=== PATIENT | female | born 1975 | race Caucasian/White ===

== ENCOUNTER → 2019-12-27 12:01 | Outpatient (BNVA) | payer SELFPAY | PROVIDERS: Family Provider Family Medicine; Visit Provider Nurse Practitioner | DX: R10.84 Generalized abdominal pain (principal) | CPT/HCPCS: 80053; 81003; 85025 ==

== ENCOUNTER 2019-12-30 09:53 | Outpatient (CLI) | payer SELFPAY ==
--- NOTE | 2019-12-30 10:11 | CT_ITS ---
WS: [id number] CT ABDOMEN PELVIS TECHNIQUE: Noncontrast CT of the abdomen and pelvis with coronal and sagittal reformatted images. CLINICAL INFORMATION: Pain abdomen COMPARISON: CT May 22, 2017 DLP: 1172.[address] scans at [facility] use at least one of these dose optimization techniques: automat ed exposure control; mA and/or kV adjustment per patient size (includes targeted exams where dose is matched to clinical indication); or iterative reconstruction. FINDINGS: Prior postoperative changes hysterectomy. Noncontrast liver is normal. Normal gallbladder. Normal non contrast spleen and pancreas. Lung bases are well aerated. Normal GE junction. Adrenal glands are nor mal. Pelvic phleboliths. No obstructing renal or ureteral calculi. No evidence of small or large bowel obstruction. Normal sigmoid colon. Normal caliber abdominal aorta . Incidental fat-containing umbilical hernia. CT/CT abdomen pelvis wo con [id number] IMPRESSION: 1. No obstructing renal or ureteral calculi. 2. No abdominal lymphadenopathy. 3. Prior hysterectomy. 4. No evidence of small or large bowel obstruction.
[2019-12-30] MEDS: iohexol 300 mg/mL 50 mL Btl IV (11:48)
== END 2019-12-30 09:54 | disposition home or self-care (01) ==
LOC: RADWPI 10:01
PROVIDERS: Family Provider Family Medicine; PCP Nurse Practitioner; Visit Provider Nurse Practitioner
DX: R10.84 Generalized abdominal pain (principal)
CPT/HCPCS: 74176

== ENCOUNTER → 2021-08-10 12:05 | Outpatient (BNVA) | payer OTHER, SELFPAY | PROVIDERS: Family Provider Family Medicine; PCP Nurse Practitioner; Visit Provider Surgery | DX: Z20.822 Contact with and (suspected) exposure to COVID-19 (principal) | CPT/HCPCS: 87635 ==

== ENCOUNTER 2021-08-15 05:49 | Day surgery (SDC) | payer SELFPAY ==
[2021-08-14 11:04] VITALS: BMI 28.3
[2021-08-15] VITALS (15 sets, daily range): BP systolic 111–157; BP diastolic 67–100; PULSE 56–78; RESP 12–21; TEMP 36.1–36.6; O2SAT 96–100
[2021-08-15] MEDS: sodium chloride 0.9% 1,000 ML 30 ML IV (06:24)
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
--- NOTE | 2021-08-15 08:06 | PM.OP ---
Operative Report Date of procedure: August 15, 2021 Pre-op Diagnosis: Symptomatic incarcerated incisional hernia Post-op Diagnosis: Incarcerated incisional hernia containing omentum Procedure Done: Laparoscopic repair of incarcerated incisional hernia with Ventralight ST mesh measuring 20 x 15 cm. Pathology: none sent Surgeon: Chandu Whitaker Anesthesia: General Condition: stable Disposition: PACU Procedure: The patient was taken to the Operating Room and was intubated under general anesthesia after the antibiotic had been administered. The abdomen was prepped and draped in a sterile manner. Using a 15 blade, a 2-cm incision was made in the left upper quadrant in the anterior axillary line and pneumoperitoneum was created using Verres needle. A 10 mm Chandrakant port was placed and 15 mm of pneumoperitoneum was created after a 10 mm 30? scope had been introduced. 5 mm port was placed at the level of the umbilicus on the left side and in the left lower quadrant under direct visualization. Using an energy device the omentum adherent to the abdominal wall along the laparotomy incision was taken down and the omentum within the hernia sac was reduced. The falciform was divided to create space for placement of mesh A spinal needle was introduced through the abdominal wall and the edges of the hernial defect were marked and measured 10 x 7 cm. A 4-5 cm margin was marked on the abdominal wall on the outer edge of the hernial defect. 20 x [address] mesh was selected and 4 separate 2-0 Secondcreek-Shine sutures were placed at the 4 corners of the mesh. Grannie needle was passed through the stab incisions and used to grasp the free ends of the Secondcreek-Shine sutures which were then used to pull the mesh up against the abdominal wall creating transfascial sutures; 5 mm SecurStraps were placed 1 cm apart along the edge of the mesh to hold it against the abdominal wall. At the end of this, it was noted that the mesh was well positioned over the hernial defect. 20 cc of saline mixed with 20cc of Exparel mixed with 20cc of 0.5% Marcaine was infiltrated in the midclavicular line bilaterally under laparoscopic visualization for a TAP block. All ports were removed under direct visualization and there was no bleeding noted from the port sites. The external oblique aponeurosis was approximated at LUQ port site using figure of eight 0 Vicryl suture. The subcutaneous tissue was approximated using 3-0 Vicryl sutures. The skin at all 3 port sites was closed using subcuticular 4-0 Monocryl suture. The stab incisions and the port sites were covered with Dermabond. Abdominal binder was placed at the end of the procedure and the patient was extubated and transferred to recovery room in stable condition.
[2021-08-15] MEDS: fentaNYL 50 mcg/mL INJ 2mL IVP ×2 (08:21→08:26)
[2021-08-15] MEDS: HYDROmorphone 1 mg/mL INJ 1 mL 0.5 MG IVP (08:43)
[2021-08-15] MEDS: oxyCODONE-APAP 5-325 mg Tablet 1 TAB PO (09:10)
--- NOTE | 2021-08-15 13:20 | ANE.PACU2 ---
Inpatient post-anesthesia follow up: Airway intact: Yes Vital signs: Temperature 98 F Pulse Rate 66 Respiratory Rate 15 Blood Pressure 130/67 Pulse Oximetry 97 Oxygen Delivery Me thod Room Air Oxygen Flow Rate 8 Fraction of Inspir ed Oxygen Hydration adequate: Yes Nausea and vomiting: No Pain level: 2 Mental status: Baseline
== END 2021-08-15 09:45 | disposition home or self-care (01) ==
PROVIDERS: Visit Provider Surgery
PROC: 0WQF4ZZ Repair Abdominal Wall, Percutaneous Endoscopic Approach (ICD-10-PCS; CPT 49655; principal; 2021-08-15 07:00)
DX: K43.2 Incisional hernia without obstruction or gangrene (principal); K43.0 Incisional hernia with obstruction, without gangrene; Z87.891 Personal history of nicotine dependence
CPT/HCPCS: 49655; C1718; C9290; J0690; J1100; J1170; J2250; J2405; J2704; J2710; J3010; J3490; J7030

== ENCOUNTER 2023-04-30 09:36 | Outpatient (CLI) | payer OTHER, SELFPAY ==
--- NOTE | 2023-04-30 09:52 | XRR_ITS ---
PROCEDURE INFORMATION: Exam: XR Left Knee Exam date and time: 04/30/2023 9:56 AM Age: 47 years old Clinical indication: Pain; Knee; Left; Additional info: Left knee pain clicking and popping TECHNIQUE: Imaging protocol: Radiologic exam of the left knee. Views: 3 views. COMPARISON: No relevant prior studies available. FINDINGS: Bones/joints: The medial joint space is mildly narrowed with minimal osteophytic lipping.. The lateral joint space is well maintained. Mild patellofemoral osteophytic formation. No fracture identified. Flabella noted. Soft tissues: No knee joint effusion is present. XR/XR knee LT 3V* [id number] IMPRESSION: 1. No evidence of acute fracture or dislocation. 2. Mild medial and patellofemoral compartment osteoarthritic changes.
== END 2023-04-30 09:37 | disposition home or self-care (01) ==
PROVIDERS: PCP Clinical Nurse Specialist Adult Health; Visit Provider Clinical Nurse Specialist Adult Health
DX: Z00.00 Encounter for general adult medical examination without abnormal findings (principal); M17.12 Unilateral primary osteoarthritis, left knee; N95.1 Menopausal and female climacteric states
CPT/HCPCS: 73562; 80053; 80061; 82670; 84144; 84436; 84443; 84481; 85025

== ENCOUNTER 2023-05-30 07:41 | Outpatient (CLI) | payer OTHER, SELFPAY ==
--- NOTE | 2023-05-30 08:00 | MR_ITS ---
WS: [id number] MRI LEFT KNEE NONCONTRAST TECHNIQUE: Axial PD, coronal PD fat sat, coronal PD, sagittal PD, and sagittal PD fat-sat images obta ined. CLINICAL INFORMATION: left knee pain COMPARISON: None. FINDINGS: Distal quadriceps and patellar tendons are intact. Hypertrophic patella. Normal ACL and PCL. Moderate to advanced degenerative narrowing medial joint compartment advanced for patient this age. Subchondr al cystic change in the femoral condyle and tibial plateau. Peripheral extrusion of the medial menisc us. Hypertrophic changes along the joint line. Moderate chondromalacia patella. This is advanced for a patient this age. Tiny suprapatellar effusion . Normal lateral collateral ligament and popliteus. Fluid and edema deep to the medial collateral lig ament compatible with grade 1-2 injury. Chronic appearing thinning of the distal MCL with some normal fibers visualized likely due to prior chronic partial tear. Small lobulated popliteal cyst. Popliteal cyst measures approximately 1.6 x 3.3 cm. Small amount of f luid and edema about the joint line. Grade IV chondromalacia medial joint compartment. IMPRESSION: 1. ACL and PCL are intact. 2. Advanced joint space narrowing medial joint compartment with grade IV chondromalacia with subchon dral edema. This is advanced for patient this age. 3. Tear of the medial meniscus extending to the meniscal root with peripheral extrusion of the media l meniscus. 4. Grade III chondromalacia patella advanced for patient this age. 5. Small lobulated popliteal cyst. 6. Suspected prior partial tear of the distal MCL with fluid and edema deep to the MCL. 7. Outbridge grading: grade IV: full-thickness cartilage loss with underlying bone reactive changes
== END 2023-05-30 07:42 | disposition home or self-care (01) ==
PROVIDERS: PCP Clinical Nurse Specialist Adult Health; Visit Provider Clinical Nurse Specialist Adult Health
DX: M22.42 Chondromalacia patellae, left knee (principal); G89.29 Other chronic pain; S83.242A Other tear of medial meniscus, current injury, left knee, initial encounter; X58.XXXA Exposure to other specified factors, initial encounter; M71.22 Synovial cyst of popliteal space [Baker], left knee
CPT/HCPCS: 73721

== ENCOUNTER → 2023-06-17 11:57 | Outpatient (BNVA) | payer OTHER, SELFPAY | PROVIDERS: PCP Clinical Nurse Specialist Adult Health; Referring Provider Clinical Nurse Specialist Adult Health; Visit Provider Student in an Organized Health Care Education/Training Program | DX: M17.12 Unilateral primary osteoarthritis, left knee | CPT/HCPCS: 73560; 73565; 99203 ==

== ENCOUNTER → 2023-07-24 15:03 | Outpatient (BNVA) | payer OTHER, SELFPAY | PROVIDERS: PCP Clinical Nurse Specialist Adult Health; Visit Provider Student in an Organized Health Care Education/Training Program | DX: M17.12 Unilateral primary osteoarthritis, left knee (principal); Z01.818 Encounter for other preprocedural examination; M25.562 Pain in left knee; G89.29 Other chronic pain | CPT/HCPCS: 99214 ==

== ENCOUNTER 2023-08-09 14:06 | Outpatient (CLI) | payer OTHER, SELFPAY ==
[2023-08-09 14:59] LABS: Basophils % 0.4 %; Eosinophils # 0.2 10^3/uL (0.0-0.8); Hematocrit 45.3 % (36-47); Lymphocytes # 2.8 10^3/uL (0.8-4.8); Lymphocytes % 30.2 %; Mean Corpuscular HGB Conc 32.9 g/dL (30-55); Mean Corpuscular Hemoglobin 28.8 pg (27-33); Mean Corpuscular Volume 87.5 fl (85-98); Mean Platelet Volume 8.5 fL (7.4-10.4); Monocytes # 0.7 10^3/uL (0.2-0.9); Monocytes % 7.6 %; Neutrophils # 5.49 10^3/uL (1.8-7.7); Neutrophils % 59.5 %; Nucleated Red Blood Cells % 0 %; Platelet Count 417 10^3/cmm (157-399); Red Blood Count 5.18 10^6/uL (3.85-5.65); White Blood Count 9.23 10^3/uL (3.29-11.43)
[2023-08-09 15:16] LABS: Alanine Aminotransferase 17 U/L (0-33); Albumin Level 4.5 g/dL (3.5-5.2); Alkaline Phosphatase 110 U/L (35-105); Anion Gap 13.9 (5-19); Aspartate Amino Transferase 17 U/L (0-32); Blood Urea Nitrogen 14 mg/dL (6-20); Calcium 9.4 mg/dL (8.5-10.5); Carbon Dioxide 27 mmol/L (22-29); Chloride 102 mmol/L (98-107); Globulin 2.9 g/dL (1.3-4.6); Glomerular Filtration Rate 106.7 mL/min (90-130); Glucose 116 mg/dL (65-115); Osmolality Calculated 289 mOsm/kg (285-295); Potassium 3.9 mmol/L (3.5-5.1); Sodium 139 mmol/L (136-145); Total Bilirubin 0.6 mg/dL (0.15-1.2); Total Protein 7.4 g/dL (6.6-8.7)
[2023-08-09 15:17] LABS: Add Urine Microscopic? YES; Bilirubin Urine Neg (Negative); Blood Urine 2+ (Negative); Glucose Urine UA Norm (Normal); Ketones Urine Negative (Negative); Leukocyte Esterase Urine Trace (Negative); Nitrate Urine Negative (Negative); Protein Urine Neg (Negative); Urine Appearance Clear (CLEAR); Urine Color Yellow (Yellow); Urobilinogen Urine Norm (Negative); pH Urine 5 (5-7)
[2023-08-09 15:18] LABS: Bacteria Urine 1+ /hpf; RBC Urine 0-4 /hpf (0-2); Squamous Epithelial Cell Urine 15-25 /hpf (0-5)
[2023-08-09 15:19] LABS: Add Urine Culture? No
== END 2023-08-09 14:07 | disposition home or self-care (01) ==
LOC: LAB 14:07
PROVIDERS: PCP Clinical Nurse Specialist Adult Health; Visit Provider Student in an Organized Health Care Education/Training Program
DX: Z01.818 Encounter for other preprocedural examination (principal)
CPT/HCPCS: 36415; 80053; 81001; 85025

== ENCOUNTER 2023-08-14 07:47 | Outpatient (CLI) | payer OTHER, SELFPAY ==
--- NOTE | 2023-08-14 08:00 | CT_ITS ---
WS: [id number] CT LEFT KNEE, NONCONTRAST TECHNIQUE: Noncontrast CT of the LEFT knee to include the LEFT hip and ankle. CLINICAL INFORMATION: DJD LEFT KNEE COMPARISON: None. DLP: 985 mgy/cm all CT scans at [facility] use at least one of these dose optimization techniques: automated e xposure control; mA and/or kV adjustment per patient size (includes targeted exams where dose is matc hed to clinical indication); or iterative reconstruction. FINDINGS: Moderate to advanced tricompartmental arthritis LEFT knee worse in the medial joint compartment. Hype rtrophic changes along the joint line. Hypertrophic patella. Tiny suprapatellar effusion. Small lobul ated popliteal cyst. Normal sigmoid colon. IMPRESSION: Images obtained for preoperative purposes.
== END 2023-08-14 07:48 | disposition home or self-care (01) ==
LOC: RAD 07:47
PROVIDERS: PCP Clinical Nurse Specialist Adult Health; Visit Provider Student in an Organized Health Care Education/Training Program
DX: M17.12 Unilateral primary osteoarthritis, left knee (principal); M71.22 Synovial cyst of popliteal space [Baker], left knee
CPT/HCPCS: 73700

== ENCOUNTER 2023-08-17 07:48 | Emergency (ER) | payer OTHER, SELFPAY ==
[2023-08-17 08:07] VITALS: BP 147/108; PULSE 80; RESP 26; TEMP 36.6; O2SAT 99; BMI 28.3
--- NOTE | 2023-08-17 08:19 | CTR_ITS ---
PROCEDURE INFORMATION: Exam: CT Abdomen And Pelvis Without Contrast Exam date and time: 08/17/2023 8:37 AM Age: 48 years old Clinical indication: Abdominal pain; Flank; Left; Prior surgery; Surgery date: 6+ months; Surgery type: Hyster, colon; Additional info: Flank pain TECHNIQUE: Imaging protocol: Computed tomography of the abdomen and pelvis without contrast. Radiation optimization: All CT scans at this facility use at least one of these dose optimization techniques: automated exposure control; mA and/or kV adjustment per patient size (includes targeted exams where dose is matched to clinical indication); or iterative reconstruction. REPORTING DATA: Count of CT and Cardiac NM exams in prior 12 months: This patient has received [address] and 0 known cardiac nuclear medicine studies in the 12 months prior to the current study. COMPARISON: CT abdomen pelvis wo con [id number] 12/30/2019 11:27 AM RADIATION DOSE METRICS: Total DLP (mGy-cm): 729.74 FINDINGS: Liver: Normal. No mass. Gallbladder and bile ducts: Normal. No calcified stones. No ductal dilation. Pancreas: Normal. No ductal dilation. Spleen: Normal. No splenomegaly. Adrenal glands: Normal. No mass. Kidneys and ureters: There is a 2.5 mm distal left ureteral calculus just above the left UVJ. There is mild left hydronephrosis and hydroureter. Right kidney is unremarkable. Stomach and bowel: Unremarkable. No obstruction. No mucosal thickening. Appendix: No evidence of appendicitis. Intraperitoneal space: Unremarkable. No free air. No significant fluid collection. Vasculature: Unremarkable. No abdominal aortic aneurysm. Lymph nodes: Unremarkable. No enlarged lymph nodes. Urinary bladder: Unremarkable as visualized. Reproductive: Hysterectomy. Bones/joints: Unremarkable. No acute fracture. Soft tissues: Unremarkable. CT/CT kidney stone [id number] IMPRESSION: There is a 2.5 mm distal left ureteral calculus with mild left hydronephrosis and hydroureter.
[2023-08-17 08:26] LABS: Basophils % 0.4 %; Eosinophils # 0.1 10^3/uL (0.0-0.8); Eosinophils % 1.1 %; Hematocrit 46.2 % (36-47); Lymphocytes # 3.4 10^3/uL (0.8-4.8); Lymphocytes % 31.6 %; Mean Corpuscular HGB Conc 33.3 g/dL (30-55); Mean Corpuscular Hemoglobin 28.6 pg (27-33); Mean Corpuscular Volume 85.9 fl (85-98); Mean Platelet Volume 8.7 fL (7.4-10.4); Monocytes # 0.8 10^3/uL (0.2-0.9); Neutrophils # 6.42 10^3/uL (1.8-7.7); Neutrophils % 59.4 %; Nucleated Red Blood Cells % 0 %; Platelet Count 477 10^3/cmm (157-399); Red Blood Count 5.38 10^6/uL (3.85-5.65); White Blood Count 10.81 10^3/uL (3.29-11.43)
[2023-08-17] MEDS: ondansetron 2 mg/ML SDV 2 mL 4 MG IVP (08:26)
[2023-08-17] MEDS: sodium chloride 0.9% 1,000 ML 999 ML IV (08:26)
[2023-08-17] MEDS: ketorolac 30 mg/mL INJ IVP (08:26)
[2023-08-17] MEDS: morphine 4 mg/mL SDV 1 mL IVP (08:26)
[2023-08-17 08:38] LABS: Alanine Aminotransferase 12 U/L (0-33); Albumin Level 4.4 g/dL (3.5-5.2); Alkaline Phosphatase 110 U/L (35-105); Anion Gap 18.5 (5-19); Aspartate Amino Transferase 16 U/L (0-32); Blood Urea Nitrogen 14 mg/dL (6-20); Calcium 9.5 mg/dL (8.5-10.5); Carbon Dioxide 21 mmol/L (22-29); Chloride 103 mmol/L (98-107); Globulin 2.8 g/dL (1.3-4.6); Glomerular Filtration Rate 76.6 mL/min (90-130); Glucose 175 mg/dL (65-115); Lipase 36 U/L (13-60); Osmolality Calculated 293 mOsm/kg (285-295); Potassium 3.5 mmol/L (3.5-5.1); Sodium 139 mmol/L (136-145); Total Bilirubin 0.9 mg/dL (0.15-1.2); Total Protein 7.2 g/dL (6.6-8.7)
[2023-08-17 08:45] VITALS: BP 128/93; PULSE 74; RESP 16; O2SAT 95
[2023-08-17 08:45] LABS: HCG, Serum Qual Negative (Negative)
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
[2023-08-17 09:45] LABS: Add Urine Microscopic? YES; Bilirubin Urine 1+ (Negative); Blood Urine Neg (Negative); Glucose Urine UA Norm (Normal); Ketones Urine Negative (Negative); Leukocyte Esterase Urine Negative (Negative); Nitrate Urine Positive (Negative); Protein Urine 1+ (Negative); Urine Appearance Clear (CLEAR); Urine Color Dark Yellow (Yellow); Urobilinogen Urine 4 mg/dL (Negative); pH Urine 7 (5-7)
[2023-08-17 09:46] LABS: Add Urine Culture? Yes; Bacteria Urine TRACE /hpf; Mucus Urine TRACE /hpf; RBC Urine 15-25 /hpf (0-2); WBC Urine 0-4 /hpf (0-5)
[2023-08-17 10:15] VITALS: BP 137/89; PULSE 82; RESP 16; O2SAT 96
[2023-08-17 11:28] VITALS: BP 137/89; PULSE 75; RESP 16; O2SAT 95
--- NOTE | 2023-08-22 10:38 | DCPLANNER ---
I spoke with patient on 08/22/23 at 1039 am for her urology appointment to see where she would like this sent. Hallie does not want to proceed with this at this time. I advised I will not send a referral per patient request.
== END 2023-08-17 11:30 | disposition home or self-care (01) ==
PROVIDERS: Emergency Medicine; Emergency Provider Family Medicine; PCP Clinical Nurse Specialist Adult Health
DX: N13.2 Hydronephrosis with renal and ureteral calculous obstruction (principal); Z87.891 Personal history of nicotine dependence; Z87.442 Personal history of urinary calculi; E78.5 Hyperlipidemia, unspecified
CPT/HCPCS: 51701; 74176; 80053; 81001; 83690; 84703; 85025; 86140; 87086; 96361; 96374; 96375; 99285; J1885; J2270; J2405; J7030

== ENCOUNTER 2023-08-25 10:25 | Observation (INO) | payer OTHER, SELFPAY ==
[2023-08-25] VITALS (17 sets, daily range): BP systolic 90–142; BP diastolic 56–95; PULSE 55–88; RESP 16–20; TEMP 36.1–36.9; O2SAT 91–97
[2023-08-25] MEDS: acetaminophen 1,000 MG/100 ML PIGGYBACK 400 MG IV ×3 (06:19→21:55)
[2023-08-25] MEDS: lactated ringers 500 ML IV (06:21)
[2023-08-25] MEDS: ketorolac 30 mg/mL INJ IVP (06:23)
[2023-08-25] MEDS: sodium chloride 0.9% 1,000 ML 30 ML IV (06:45)
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
[2023-08-25] MEDS: midazolam 1 mg/mL INJ 2 mL 2 MG IVP (07:00)
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
--- NOTE | 2023-08-25 07:09 | ANES.PROC ---
Anesthesia Procedures Procedure/Date: 08/25/23 Nerve Block ^: Nerve Block 1: Main Anesthesia: spinal anesthesia block Time Out Performed: Yes Consent: requested by attending/covering physician, from patient, from other, risks and benefits reviewed and patient agrees to proceed Nerve block location: adductor canal (L) Anesthesia monitors applied: pulse oximetry, EKG and BP cuff Nerve block position: supine Anesthetic Used: ropivicaine 0.5% (30 ml) and with decadron (4 mg) Ultrasound used to: recognize landmarks and visualize and ID femerol nerve Nerve Stimulator Used?: No Interscalene/Femoral BLK: 4 stimuplex 21 g needle used for position and inplane approach, visualize local anesthetic spread and no vascular puncture identified Patient Tolerated Procedure: well and no complications Complications: none
[2023-08-25] MEDS: ceFAZolin 2,000 MG in sodium chloride 0.9% (plus) 50 ML 100 MG IV ×3 (07:13→22:23)
[2023-08-25] MEDS: tranexamic acid 1,000 mg/10mL SDV 1000 MG IV (07:45)
[2023-08-25 07:48] LABS: Basophils # 0.1 10^3/uL (0.0-0.1); Basophils % 0.6 %; Eosinophils # 0.4 10^3/uL (0.0-0.8); Hematocrit 43.7 % (36-47); Lymphocytes # 2.9 10^3/uL (0.8-4.8); Lymphocytes % 31.9 %; Mean Corpuscular HGB Conc 32.7 g/dL (30-55); Mean Corpuscular Hemoglobin 28.8 pg (27-33); Mean Corpuscular Volume 87.9 fl (85-98); Mean Platelet Volume 9.1 fL (7.4-10.4); Monocytes # 0.8 10^3/uL (0.2-0.9); Monocytes % 9.3 %; Neutrophils # 4.82 10^3/uL (1.8-7.7); Neutrophils % 53.8 %; Nucleated Red Blood Cells % 0 %; Platelet Count 439 10^3/cmm (157-399); Red Blood Count 4.97 10^6/uL (3.85-5.65); Red Cell Distribution Width 12.5 % (12.1-15.1); White Blood Count 8.96 10^3/uL (3.29-11.43)
[2023-08-25] MEDS: tranexamic acid 1,000 mg/10mL SDV 1000 MG XX (08:19)
[2023-08-25] MEDS: ketorolac 30 mg/mL INJ XX (08:20)
[2023-08-25] MEDS: EPINEPHrine 1 mg/mL INJ XX (08:20)
[2023-08-25] MEDS: ROPivacaine 0.2% Premix 100 mL 200 MG XX (08:20)
--- NOTE | 2023-08-25 09:50 | P.BOP_ITS ---
Date of Procedure: [08/25/2023] Surgeon: Brooks Wall DO Geospatial Information Technologist(s): None Procedure(s) performed: Left total knee arthroplasty, Froilan robotic assisted Findings of the procedure(s): Left knee degenerative joint disease, procedure went as planned with no complications Estimated blood loss: 25 mL Specimen(s) removed: Femur and tibia and patella bone clots removed Post-operative diagnosis: Left knee degenerative joint disease
--- NOTE | 2023-08-25 09:51 | P.OP_ITS ---
Operative Report Date of procedure: August 25, 2023 Surgeon: Brooks Wall DO Procedure: Preoperative diagnosis: Left knee degenerative joint disease Post-op diagnosis: Same Procedure done: Left total knee arthroplasty, cemented?robotic assisted Froilan Implants: [place] triathlon size 4 femur CR cemented?left Dino triathlon size? 4 tibia universal baseplate cemented Dino triathlon symmetric patella size 31 mm [place] triathlon polyethylene 12mm Surgeon: Brooks Wall DO Estimated blood?loss: 25 mL Tourniquet 60minutes IV fluids: 1200 mL Urine output: 500 mL Complications: None Condition: stable Disposition: floor Brief History: Patient is a 48-year-old female with with chronic?left knee degenerative joint disease.? Patient has been worked up in the outpatient setting in the orthopedic office at this point time through shared decision making given? [id number] arthritis as well as failed conservative treatment, and pt would?like to proceed with a?left total knee arthroplasty.? Through shared decision making elected to proceed with surgical intervention for?left total knee arthroplasty.? We talked about continued conservative treatment and surgical intervention as far as the risk benefits complications alternatives surgical and nonsurgical treatment options.? At this point time understanding patient risks with surgery he agrees to proceed with surgical intervention.? Once again? risk with surgery include but are not?limited to make it better make it worse blood clot, heart attack, stroke, on the table, infection, injury to nerves or vessels, persistent pain, arthrofibrosis, implant failure.? Understanding these risks patient agrees to proceed with surgical intervention consent was obtained in the office.? All questions answered. Procedure: Patient was seen and evaluated in the preoperative holding area.? Consent was reviewed and signed with patient with plan for?left total knee arthroplasty.? All questions answered.? Correct extremity marked.? Patient seen and evaluated by the anesthesia department and once cleared for surgery was taken back to the operative suite.? Patient was placed into a supine position on the OR table.? All bony prominences were well-padded.? Patient was appropriately secured to the bed.? Patient underwent anesthesia per the anesthesia department.? Patient received spinal anesthesia and? Christopher catheter was placed.? A nonsterile tourniquet was applied to the?left thigh.? At this point in time a final timeout performed.? Patient received appropriate preoperative antibiotics and TXA. Next the?left?lower extremity was then prepped and draped in standard orthopedic fashion. Esmarch tourniquet was used exsanguinate the?left?lower extremity.? Tourniquet was insufflated to 250 mmHg. A standard anterior incision was made over midline of the knee.? Sharp scalpel excision through skin and subcutaneous tissue full-thickness skin flaps were made.? Fascia was elevated off of the extensor retinaculum was stable with m edial parapatellar arthrotomy was then made.? The performed standard sequential releases..? Immediately on entry into the joint patient was found to have severe eburnated bone and tricompartmental arthritic changes noted.? With significant osteophyte formation.? Next the the patella was then stuffed and the knee was then flexed.?? Arnaldo was placed superiorly around the anterior aspect of the femur this was freed of synovium and I subsequently then placed by femur pins to establish my femur arrays for the Froilan robot.? These were then placed bicortically and? femur array was then appropriately secured with appropriate visualization.? Next attention was turned towards the tibial rays.? These were then drilled sequentially bicortically in parallel fashion and intraincisional.? I then placed my guide as well as my tibial array on in place.? This was appropriately secured and had excellent visualization with the Froilan robot.? Next the tibial checkpoint as well as femur checkpoint were then placed.? At this point time I then subsequently established my head center as well as my medial?lateral malleoli as well as my checkpoints.? Next utilizing standard Froilan technology I then mapped out the appropriate points and confirmation points around the femur as well as the tibia in standard fashion.? Once this was then done I then removed all osteophytes in preparation for dynamic testing.? All osteophytes were removed as well as I removed the ACL and the PCL was excised due to its significant tearing and degeneration noted.? At this point time the knee was brought into full extension and we performed our standard evaluation of our gap balancing stressing his?ligaments and extension as well as flexion appropriate adjustments were made to have appropriate gap balancing in both flexion and extension.? This plan for final counts.? We get a preoperative plan evaluating our implants which was a size 4 femur and a size 4 tibia.? Next we brought in the Froilan robot and sequentially made our femur cuts.? All excess bony cuts were then removed.? Finally we made our tibial cut.? Once this was done a standard PCL retractor was then placed into this position I excised the medial and?lateral meniscus.? The tibial cut was then subsequently removed all excess bony debris was removed.? I then utilized a?lamina plateman and remove the posterior osteophytes.? At this point time sized the tibia and confirmed this was a size 4.? I utilized our blunt probe to establish rotation of tibial implant.? Once this was done I then placed my tibia size 4 trial in appropriate position and then subsequently placed tibial pins to hold this into place placed a size 12 mm poly as well as a size 4 femur which was appropriately impacted in place knee was then subsequently brought into extension. Trials were then assessed,? this was stable with varus valgus stress in extension as well as had symmetrical translation when brought into flexion demonstrating symmetrical gaps. I had excellent balance gaps in flexion and extension with varus and valgus stresses.? At this point I was satisfied with these implants these were then verified and opened on the back table size 4 tibia, size4 femur,? size 12 mm polythickness.? We did confirm appropriate gap balancing and stresses as well as alignment utilizing? Amazing [employer] and were satisfied with this plan.? ?At this point time with my trials in place I then towel clip the patella everted this made appropriate measurements subsequently utilizing freehand technique performed by patellar resurfacing this was confirmed to be appropriate resection and subsequently sized to be a 31 mm symmetric.? My drill peg guides were then clamped and appropriate position and appropriate position in the patella for appropriate tracking and parallel with the joint.? Pegs were drilled trial implant was placed and the knee was then subsequently ranged and found to have excellent patellar tracking.? Femur pegs were then drilled.? Satisfied with our tibial placement rotation I then utilized the keel punch and prepped the tibia.? At this point time all of our trial implants were removed.? All checkpoints as well as guidepins and arrays were removed and appropriate counts made.? The wound bed? was thoroughly irrigated and dried and prepped for cementation.? Cement was mixed on the back table.? Once cement was ready this was then covered onto the tibia and the tibial baseplate was then impacted and all excess cement was removed.? Next the polyethylene was then impacted into place on the tibial baseplate.? Next cement was placed onto the femur as well as under the femur implants and impacted in to place and all excess cement was extruded and removed.? Knee was taken into full extension? to clear all excess cement was removed.? Warm saline was placed over the joint.? I then towel clip patella and dried for cementation. cemented the patella into place.? This was all clamped and the cement was allowed to cure.? Thorough irrigation performed with pulse?lavage.? I then placed my periarticular injection while the cement was curing.? Once cured the knee was taken through range of motion and had excellent stability and gaps were balanced in flexion and extension.? Tourniquet was then deflated. hemostasis satisfactory with electrocautery.? Next I then subsequently closed the capsule with Ethibond suture as well as a running strata fix suture.? Knee was then taken through range of motion 30 times.? Next the skin was then closed in?layered fashion of running stratifix sutures of deep and subcutenous tissue and skin.? ?closed in flexion and Prineo glue was then placed over the incision this allowed to cure.? Incision was covered with OpSite, with ABDs soft roll and Jamin wrap.? Patient was then awakened from anesthesia and taken to PACU in stable condition. Disposition: Patient taken to PACU in stable condition will be admitted to the floor for pain control PT/OT weight-bear as tolerated?left?lower extremity dressing changes as needed, DVT prophylaxis. Pain control. Patient will receive appropriate postoperative antibiotics. patient will be seen today by the internal medicine team for medical management.? Patient will follow up with the office in 2 weeks.? Patient understands agrees with current plan.? All questions answered.
--- NOTE | 2023-08-25 10:00 | XR_ITS ---
WS: [id number] Exam: XR knee LT 1-2V [id number] Date/Time of Exam: 08/25/2023 10:01 AM Reason For Exam: post L TKA Comparison 06/17/2023. A total knee prosthesis is in place in excellent position. Postoperative changes in the adjacent soft tissues. IMPRESSION: 1. LEFT total knee replacement in excellent position.
--- NOTE | 2023-08-25 10:25 | ANE.PACU2 ---
Inpatient post-anesthesia follow up: Airway intact: Yes Vital signs: Temperature 97.5 F Pulse Rate 84 Respiratory Rate 16 Blood Pressure 102/63 Pulse Oximetry 93 Oxygen Delivery Me thod Room Air Oxygen Flow Rate Fraction of Inspir ed Oxygen Hydration adequate: Yes Nausea and vomiting: No Pain level: 1 Mental status: Baseline
[2023-08-25] MEDS: lactated ringers 1,000 ML 100 ML IV ×2 (11:38→20:45)
[2023-08-25] MEDS: HYDROmorphone 1 mg/mL INJ 1 mL 0.5 MG IVP ×2 (12:18→23:17)
[2023-08-25] MEDS: chlorhexidine gluconate 0.12% Btl 473 mL 30 ML MUCOUS MEM ×3 (12:18→20:45)
[2023-08-25] MEDS: tranexamic acid 1,000 MG/100 ML PREMIX 600 MG IV (12:18)
--- NOTE | 2023-08-25 13:25 | PM.PACU ---
PACU note Narrative: Patient seen and examined postoperatively. Left lower extremity: patient has spinal anesthesia still in effect dressings on in place clean dry and intact. Unable to assess motor or sensory secondary to spinal anesthesia. Distal pulses palpable, toes warm well-perfused compartments soft compressible. Pain controlled. Will return to floor postoperatively. Exam: awake Disposition: admitted
[2023-08-25] MEDS: oxyCODONE 5 mg IR Tab/Cap PO ×2 (16:01→20:43)
[2023-08-25 16:52] LABS: Blood Urea Nitrogen 14 mg/dL (6-20); Calcium 9.1 mg/dL (8.5-10.5); Carbon Dioxide 23 mmol/L (22-29); Chloride 104 mmol/L (98-107); Glomerular Filtration Rate 106.7 mL/min (90-130); Glucose 107 mg/dL (65-115); Osmolality Calculated 291 mOsm/kg (285-295); Sodium 140 mmol/L (136-145)
[2023-08-25 17:10] LABS: Anion Gap 17.4 (5-19); Potassium 4.4 mmol/L (3.5-5.1)
[2023-08-25] MEDS: mupirocin oint 22 gm 1 APPLIC NASAL (17:39)
[2023-08-25] MEDS: docusate sodium 100 mg Capsule PO (17:39)
[2023-08-25] MEDS: iron polysaccharide complex 150 mg Capsule PO (17:39)
[2023-08-25] MEDS: calcium carb-vit d 600mg/400unit 1 Tablet 1 EACH PO (17:39)
[2023-08-25] MEDS: ketorolac 30 mg/mL INJ 15 MG IVP (22:22)
[2023-08-26] VITALS (7 sets, daily range): BP systolic 100–114; BP diastolic 53–71; PULSE 59–82; RESP 15–18; TEMP 36.6–36.8; O2SAT 91–96
[2023-08-26] MEDS: oxyCODONE 5 mg IR Tab/Cap PO ×2 (04:06→09:59)
[2023-08-26] MEDS: acetaminophen 1,000 MG/100 ML PIGGYBACK 400 MG IV (05:14)
[2023-08-26 05:33] LABS: Basophils % 0.2 %; Eosinophils % 0.3 %; Hematocrit 34.8 % (36-47); Lymphocytes # 2.5 10^3/uL (0.8-4.8); Lymphocytes % 16.6 %; Mean Corpuscular HGB Conc 32.8 g/dL (30-55); Mean Corpuscular Volume 88.5 fl (85-98); Mean Platelet Volume 8.8 fL (7.4-10.4); Monocytes # 1.7 10^3/uL (0.2-0.9); Monocytes % 10.8 %; Neutrophils # 10.91 10^3/uL (1.8-7.7); Neutrophils % 71.6 %; Nucleated Red Blood Cells % 0 %; Platelet Count 359 10^3/cmm (157-399); Red Blood Count 3.93 10^6/uL (3.85-5.65); Red Cell Distribution Width 12.4 % (12.1-15.1); White Blood Count 15.23 10^3/uL (3.29-11.43)
[2023-08-26 05:53] LABS: Anion Gap 14.9 (5-19); Blood Urea Nitrogen 13 mg/dL (6-20); Calcium 8.8 mg/dL (8.5-10.5); Carbon Dioxide 24 mmol/L (22-29); Chloride 103 mmol/L (98-107); Glomerular Filtration Rate 106.7 mL/min (90-130); Glucose 124 mg/dL (65-115); Osmolality Calculated 288 mOsm/kg (285-295); Potassium 3.9 mmol/L (3.5-5.1); Sodium 138 mmol/L (136-145)
[2023-08-26] MEDS: ceFAZolin 2,000 MG in sodium chloride 0.9% (plus) 50 ML 100 MG IV (06:05)
[2023-08-26] MEDS: TRAMadol 50 mg Tablet PO (06:06)
[2023-08-26] MEDS: lactated ringers 1,000 ML 100 ML IV (08:21)
[2023-08-26] MEDS: calcium carb-vit d 600mg/400unit 1 Tablet 1 EACH PO (08:21)
[2023-08-26] MEDS: multivitamin therapeutic Tablet 1 TAB PO (08:21)
[2023-08-26] MEDS: iron polysaccharide complex 150 mg Capsule PO (08:21)
[2023-08-26] MEDS: aspirin 325 mg EC Tablet PO ×2 (08:21→08:38)
[2023-08-26] MEDS: docusate sodium 100 mg Capsule PO (08:21)
--- NOTE | 2023-08-26 09:06 | PC.CHAP ---
Pastoral Care Encounter/Spiritual Assessment Type of Contact [] Declined torsion spring coiling machine setter visit [] Patient/Family/Request visit [] Outpatient visit [] Follow-up visit [] Physician referral [] Code/Alert [] Routine visit [] Staff referral [] Actively dying [] Patient sleeping [] Family support [] [] Out of room [] Palliative care [] [x] Receiving care in room [] Pre-surgical visit [] Trauma [] Long length of stay [] ICU visit [] Other: Relational/Emotional Strength [] Patient feels connected with others/family/visitors/staff [] Distress [] Loneliness/isolation [] Abandonment Spirituality of Patient [] Person of Nicky [] Attends Voodoo of their Nicky [] Believes in Prayer [] Reads Bible or Christian materials [] There are Spiritual issues to be addressed Java User Interface Developer Interventions [] Prayer [] Active listening [] Non-anxious presence [] Spiritual/emotional support [] Crisis/trauma care [] Spiritual counseling [] Bereavement support [] Provided bereavement packet [] Provided Bible/devotional materials [] Provided toy/stuffed animal, coloring book to patient or family member [] Provided Communion [] Anointing/[place] [] Salvation [] Completed spiritual assessment [] Other: Impact on Illness or Injury [] Angry [] Fearful [] Anxious [] Often cries [] Exhaustion [] Unable to work [] Unable to attend jainism [] Unable to walk/stand [] Unable to read [] Unable to drive [] Unable to eat/drink [] Unable to sleep [] Unable to be with family [] Patient intubated [] Other: Summary Time spent with patient
[2023-08-26] MEDS: chlorhexidine gluconate 0.12% Btl 473 mL 30 ML MUCOUS MEM (09:59)
[2023-08-26] MEDS: mupirocin oint 22 gm 1 APPLIC NASAL (10:00)
--- NOTE | 2023-08-26 12:14 | P.PN_ITS ---
Subjective 2 Subjective: Patient is a 48-year-old female that is 1 day postop left total knee arthroplasty. Denies any acute events overnight. She has worked with physical therapy today. Denies any other complaints. Vitals/I&O/Wt Last Vital Signs Temp 97.9 F 08/26/23 07:18 Pulse 79 08/26/23 11:54 Resp 16 08/26/23 11:54 BP 108/69 08/26/23 11:54 Pulse Ox 96 08/26/23 11:54 O2 Del Method Room Air 08/26/23 11:54 08/25/23 08/26/23 08/26/23 22:59 06:59 14:59 Intake Total 1541.667 / 3231.667 1150 / 4381.667 290 / 290 Output Total 1900 / 2425 250 / 2675 Balance -358.333 / 806.667 900 / 1706.667 290 / 290 Weight last 48 hrs Weight 189 lb 8 oz Weight 175 lb Weight 175 lb Physical Exam 2 Const: COMMON NORMALS: no acute distress and alert Resp: COMMON NORMALS: normal respiratory effort and No retractions Cardio: COMMON NORMALS: Peripheral pulses 2+ throughout PERIPHERAL PULSES: Peripheral pulses 2+ throughout Extremity: NARRATIVE EXTREMITY EXAM: Left leg?dressing is dry and intact. Patient has active range of motion in knee from 0 to 80 degrees. Pedal pulse 2+. Patient can straight leg raise, dorsiflex and plantarflex foot. Neuro: SENSORIUM/ORIENTATION: Yes alert Skin: GENERAL SKIN EXAM: dry skin Urinary Catheter Management: Christopher: Cath Placed During This Visit: yes, but has since been removed by the nurse Reason for Continuing Indwelling Catheter: Decision to DC Catheter Urinary Catheter Date of Insertion: 08/25/23 Urinary Catheter Time of Insertion: 07:45 Date Urinary Catheter Removed: 08/26/23 Time Urinary Catheter Discontinued: 06:10 Data 08/26/23 05:06 08/26/23 05:06 A&P Assessment and plan (1) Status post total left knee replacement using cement: Plan Plan: -Imaging and Labs reviewed -Hospitalist on board for medical management. -DVT prophylaxis- Aspirin 325mg BID for 14 days -Weight-bear as tolerated on right leg -Pain control -PT Pt is doing well 1 day postop Right total knee replacement. Pt is cleared for discharge home today. She will be sent home with a prescription for oxycodone, aspirin 325 mg twice daily and Zofran for nausea. She will be scheduled for 2- week postop appointment at Ortho clinic. Attestations 2 Medical Necessity Statement*: Ongoing care for left TKA Coding Level of Care Code Acute Code for Kimberlyg Fwd Diagnoses Status post total left knee replacement using cement Z96.652
--- NOTE | 2023-08-26 12:25 | P.DS_ITS ---
Discharge Providers Date of Admission: 08/25/23 10:25 Date of Discharge: August 26, 2023 Attending Provider at Admission: Brooks Wall DO Attending Provider at Discharge: Brooks Wall DO Primary Care Provider: Raymond Ellis Diagnoses at Discharge Discharge Diagnosis (1) Status post total left knee replacement using cement: Status: Acute Reason for Visit Reason for Visit: encounter for preprocedural examination Brief History: Status post left total knee arthroplasty Froilan robotic assisted Hospital Course Hospital Course Patient presented to the preoperative holding area with plan for left total knee arthroplasty after patient has been worked up in the outpatient setting for failed conservative treatment of left knee degenerative joint disease. Once cleared by anesthesia for surgery patient subsequently was taken back to the operative suite underwent anesthesia per anesthesia department and then subsequently underwent a left total knee arthroplasty. Procedure was performed without any complications patient was taken to PACU in stable condition patient recovered well in PACU and then was admitted to the floor postoperatively. Patient received appropriate PT/OT, postoperative antibiotics, postoperative TXA, pain control, postoperative DVT prophylaxis. Elevation and ice. Patient encouraged for knee range of motion allowed weightbearing as tolerated to the operative lower extremity. Dressing was changed as needed, labs were monitored daily. Patient recovered well postoperatively and worked well and progressed well with therapy. It was determined on postoperative day 1 the patient was stable for discharge from an orthopedic standpoint. Patient was comfortable with discharge and plan was discharged home. Patient received appropriate discharge instructions as well as pain medication and DVT prophylaxis postoperatively. Given appropriate instructions for dressing management. Patient will follow-up with Dr. Wall/orthopedics in the office in 2 weeks. All questions answered. Understand if there is any issues questions or concerns and contact the office. Physical Exam Const: COMMON NORMALS: no acute distress and alert Resp: COMMON NORMALS: normal respiratory effort and No retractions Cardio: COMMON NORMALS: Peripheral pulses 2+ throughout PERIPHERAL PULSES: Peripheral pulses 2+ throughout Extremity: NARRATIVE EXTREMITY EXAM: Left leg?dressing is dry and intact. Patient has active range of motion in knee from 0 to 80 degrees. Pedal pulse 2+. Patient can straight leg raise, dorsiflex and plantarflex foot. Neuro: SENSORIUM/ORIENTATION: Yes alert Skin: GENERAL SKIN EXAM: dry skin Urinary Catheter Management: Christopher: Cath Placed During This Visit: yes, but has since been removed by the nurse Reason for Continuing Indwelling Catheter: Decision to DC Catheter Urinary Catheter Date of Insertion: 08/25/23 Urinary Catheter Time of Insertion: 07:45 Date Urinary Catheter Removed: 08/26/23 Time Urinary Catheter Discontinued: 06:10 Discharge Data Studies Completed and Pending Completed Studies During Hospitalization Category Date Time Status XR knee LT 1-2V 66614 Routine Exams 08/25/23 10:00 Completed Pending at discharge Category Date Time Status Basic Metabolic Panel AM LABS Lab 08/27/23 04:00 Ordered Basic Metabolic Panel AM LABS Lab 08/28/23 04:00 Ordered Complete Blood Count w/Auto AM LABS Lab 08/27/23 04:00 Ordered Complete Blood Count w/Auto AM LABS Lab 08/28/23 04:00 Ordered Laboratory Results WBC 15.23 10^3/uL (3.29-11.43) H 08/26/23 05:06 RBC 3.93 10^6/uL (3.85-5.65) 08/26/23 05:06 Hgb 11.40 g/dL (11.27-16.99) 08/26/23 05:06 Hct 34.8 % (36-47) L 08/26/23 05:06 MCV 88.5 fl (85-98) 08/26/23 05:06 MCH 29.0 pg (27-33) 08/26/23 05:06 MCHC 32.8 g/dL (30-55) 08/26/23 05:06 RDW 12.4 % (12.1-15.1) 08/26/23 05:06 Plt Count 359 10^3/cmm (157-399) 08/26/23 05:06 MPV 8.8 fL (7.4-10.4) 08/26/23 05:06 Neut % (Auto) 71.6 % 08/26/23 05:06 Lymph % (Auto) 16.6 % 08/26/23 05:06 Carter % (Auto) 10.8 % 08/26/23 05:06 Eos % (Auto) 0.3 % 08/26/23 05:06 Baso % (Auto) 0.2 % 08/26/23 05:06 Neut # (Auto) 10.91 10^3/uL (1.8-7.7) H 08/26/23 05:06 Lymph # (Auto) 2.5 10^3/uL (0.8-4.8) 08/26/23 05:06 Carter # (Auto) 1.7 10^3/uL (0.2-0.9) H 08/26/23 05:06 Eos # (Auto) 0.0 10^3/uL (0.0-0.8) 08/26/23 05:06 Baso # (Auto) 0.0 10^3/uL (0.0-0.1) 08/26/23 05:06 Nucleated RBC % (auto) 0 % 08/26/23 05:06 Nucleated RBCs # 0.0 /100WBC 08/26/23 05:06 Sodium 138 mmol/L (136-145) 08/26/23 05:06 Potassium 3.9 mmol/L (3.5-5.1) 08/26/23 05:06 Chloride 103 mmol/L (98-107) 08/26/23 05:06 Carbon Dioxide 24 mmol/L (22-29) 08/26/23 05:06 Anion Gap 14.9 (5-19) 08/26/23 05:06 BUN 13 mg/dL (6-20) 08/26/23 05:06 Creatinine 0.6 mg/dL (0.5-0.9) 08/26/23 05:06 GFR Calculation 106.7 mL/min (90-130) 08/26/23 05:06 Glucose 124 mg/dL (65-115) H 08/26/23 05:06 Calculated Osmolality 288 mOsm/kg (285-295) 08/26/23 05:06 Calcium 8.8 mg/dL (8.5-10.5) 08/26/23 05:06 Blood Type B Positive 08/25/23 06:15 Rho(D) Type Rh positive 08/25/23 06:15 Antibody Screen Negative 08/25/23 06:15 Imaging Xray Ortho: Radiologist's impression: IMPRESSION: 1. LEFT total knee replacement in excellent position. Procedures Performed Left total knee arthroplasty Froilan robotic assisted Vitals Last Vital Signs Temp 97.9 F 08/26/23 07:18 Pulse 79 08/26/23 11:54 Resp 16 08/26/23 11:54 BP 108/69 08/26/23 11:54 Pulse Ox 96 08/26/23 11:54 O2 Del Method Room Air 08/26/23 11:54 Discharge Plan Discharge Patient Disposition: Home Condition: Stable Prescriptions: New ondansetron 4 mg tablet,disintegrating 4 mg PO Q8H PRN (Reason: nausea and vomiting) 3 Days Qty: 9 0RF aspirin 325 mg tablet 325 mg PO BID 14 Days Qty: 28 0RF oxycodone 5 mg tablet 5 mg PO Q6H PRN (Reason: pain postop) 7 Days Qty: 28 0RF Tylenol Extra Strength 500 mg tablet 500 mg PO Q4H 14 Days Qty: 84 0RF Continued atorvastatin 40 mg tablet 40 mg PO DAILY Qty: 90 0RF duloxetine 60 mg capsule,delayed release(DR/EC) 60 mg PO DAILY Qty: 30 3RF tamsulosin 0.4 mg capsule 0.4 mg PO DAILY Qty: 14 0RF Discontinued hydrocodone-acetaminophen 5-325 mg tablet 1 tab PO Q6H PRN (Reason: pain) Qty: 20 0RF promethazine 25 mg tablet 25 mg PO Q6H PRN (Reason: nausea and vomiting) Qty: 20 0RF Discharge Orders: Discharge Order (Routine); Ordered 08/26/23 Ordered By: Brooks Wall Other Ambulatory Orders: DME: Walker (Order) Location: None Selected Ordered By: Brooks Wall Physical Therapy Eval and Treat Outpatient (Order) Timeframe: 3 Days Facility: [facility] - Location: Physical Therapy Ordered By: Brooks Wall Referrals: Outpatient Physical Therapy at the [facility] [Other] (Someone will call you from Outpt PT to setup a date & time to follow up for therapy. If you have not heard from them in a few days, feel free & call .) Brooks Wall DO [Physician] - 09/16/23 9:00 am Discharge Diet: Advance as tolerated Discharge Activity: Limit activity as instructed Patient Instructions: Oxycodone/Acetaminophen (By mouth), Aspirin (By mouth), Ondansetron (By mouth), Total Knee Replacement (GEN), Joint Replacement Stoplight, Opioid Safety Activity Restrictions/Additional Instructions: Orthopedic discharge instructions: Keep incisions clean dry and intact, leave Silverlon bandage dressings on in place for 7 days after that may rinse incisions with warm soapy water pat dry and redress with a dry dressing. Patient may weight-bear as tolerate to the operative extremity Utilize crutches as needed Encourage knee range of motion Ice and elevate as needed for pain and swelling Take pain medication as prescribed Take antinausea medication as needed The prescribed Aspirin twice daily for the next 14 days for blood clot prevention May supplement for pain with ibuprofen [id number] as needed No baths or soaks Follow-up in the orthopedic office in 2 weeks Contact the office for any questions or concerns Discharge Attestations Time Spent in Discharge Care*: less than 30 min Quality Metrics Clinical Quality Measures [ No reported AMI, CVA or VTE this stay] Coding Level of Care Code Acute Code for Chg Fwd Diagnoses Status post total left knee replacement using cement Z96.652 Time Spent (min) 25
== END 2023-08-26 13:42 | disposition home or self-care (01) ==
LOC: MEDSURG 15:43
PROVIDERS: Admitting Provider Student in an Organized Health Care Education/Training Program; PCP Clinical Nurse Specialist Adult Health; Visit Provider Student in an Organized Health Care Education/Training Program
PROC: 8E0Y0CZ Robotic Assisted Procedure of Lower Extremity, Open Approach (ICD-10-PCS; CPT 27447; principal; 2023-08-25 07:00)
DX: M17.12 Unilateral primary osteoarthritis, left knee (principal); E78.5 Hyperlipidemia, unspecified; Z87.891 Personal history of nicotine dependence
CPT/HCPCS: 20985; 27447; 36415; 51702; 73560; 80048; 85025; 86850; 86900; 97110; 97116; 97161; 97165; C1776; G0378; J0131; J0171; J0690; J1100; J1170; J1885; J2250; J2371; J2704; J2795; J3010; J3490; J7030; J7120

== ENCOUNTER 2023-08-26 18:53 | Emergency (ER) | payer OTHER, SELFPAY ==
[2023-08-26 19:09] VITALS: BP 158/79; PULSE 91; RESP 17; TEMP 36.7; O2SAT 93; BMI 28.3
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
[2023-08-26] MEDS: ondansetron 2 mg/ML SDV 2 mL 4 MG IVP (19:28)
[2023-08-26] MEDS: HYDROmorphone 1 mg/mL INJ 1 mL IVP ×2 (19:28→19:48)
--- NOTE | 2023-08-26 19:46 | XRR_ITS ---
PROCEDURE INFORMATION: Exam: XR Left Knee Exam date and time: 08/26/2023 7:52 PM Age: 48 years old Clinical indication: Pain; Left; Prior surgery; Surgery date: Post-operative (0-2 days); Surgery type: Lt knee; Additional info: Injury TECHNIQUE: Imaging protocol: Radiologic exam of the left knee. Views: 3 views. COMPARISON: 1. CR XR knee LT 1-2V [id number] 08/25/2023 11:07 AM 2. CR XR knee LT 3V* [id number] 04/30/2023 9:56 AM FINDINGS: Bones/joints: Status post left total knee arthroplasty with intact hardware and stable adequate alignment. No acute fracture or dislocation. Soft tissues: Joint effusion and regional soft tissue swelling with soft tissue air lucencies are expected in the recent postoperative setting. XR/XR knee LT 3V* [id number] IMPRESSION: Recent left total knee arthroplasty without evidence of hardware complication or acute bony abnormality.
[2023-08-26 19:53] LABS: Basophils % 0.3 %; Eosinophils # 0.1 10^3/uL (0.0-0.8); Eosinophils % 0.9 %; Hematocrit 37.2 % (36-47); Lymphocytes # 3.9 10^3/uL (0.8-4.8); Lymphocytes % 29.3 %; Mean Corpuscular HGB Conc 33.1 g/dL (30-55); Mean Corpuscular Hemoglobin 28.4 pg (27-33); Mean Corpuscular Volume 85.9 fl (85-98); Mean Platelet Volume 8.7 fL (7.4-10.4); Monocytes # 1.5 10^3/uL (0.2-0.9); Monocytes % 11.2 %; Neutrophils # 7.74 10^3/uL (1.8-7.7); Neutrophils % 57.6 %; Nucleated Red Blood Cells % 0 %; Platelet Count 409 10^3/cmm (157-399); Red Blood Count 4.33 10^6/uL (3.85-5.65); Red Cell Distribution Width 12.4 % (12.1-15.1); White Blood Count 13.44 10^3/uL (3.29-11.43)
[2023-08-26 20:06] LABS: Anion Gap 17.7 (5-19); Blood Urea Nitrogen 12 mg/dL (6-20); Carbon Dioxide 20 mmol/L (22-29); Chloride 102 mmol/L (98-107); Glomerular Filtration Rate 131.7 mL/min (90-130); Glucose 125 mg/dL (65-115); Osmolality Calculated 283 mOsm/kg (285-295); Potassium 3.7 mmol/L (3.5-5.1); Sodium 136 mmol/L (136-145)
[2023-08-26] MEDS: LORazepam 1 mg Tablet PO (20:44)
[2023-08-26] MEDS: methocarbamol 750 mg Tablet 1500 MG PO (20:45)
== END 2023-08-26 21:05 | disposition home or self-care (01) ==
PROVIDERS: Emergency Provider Emergency Medicine; PCP Clinical Nurse Specialist Adult Health
DX: G89.18 Other acute postprocedural pain (principal); Z79.82 Long term (current) use of aspirin; Z87.891 Personal history of nicotine dependence; E78.5 Hyperlipidemia, unspecified
CPT/HCPCS: 73562; 80048; 85025; 96374; 96375; 96376; 99284; J1170; J2060; J2405

== ENCOUNTER 2023-08-28 08:44 | Outpatient (RCR) | payer OTHER, SELFPAY | END 2023-09-14 23:59 | disposition home or self-care (01) | LOC: SPT 08:44 | PROVIDERS: PCP Clinical Nurse Specialist Adult Health; Visit Provider Student in an Organized Health Care Education/Training Program | DX: M17.12 Unilateral primary osteoarthritis, left knee (principal) | CPT/HCPCS: 97110; 97140; 97161 ==

== ENCOUNTER 2023-08-28 12:38 | Emergency (ER) | payer OTHER, SELFPAY ==
[2023-08-28] VITALS (9 sets, daily range): BP systolic 91–136; BP diastolic 58–86; PULSE 84–127; RESP 16–20; TEMP 38.2; O2SAT 93–99; BMI 28.3
--- NOTE | 2023-08-28 14:03 | XR_ITS ---
WS: [id number] Left knee, 3 views, 08/28/2023 Clinical Data: post op pain Comparison: Left knee, 08/26/2023 Findings: The left knee arthroplasty remains in the same position. No periprosthetic loosening or fractures are seen. There is soft tissue swelling over the anterior knee. The air in the soft tissue from surgery is decreased. Impression: Stable left knee arthroplasty.
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
--- NOTE | 2023-08-28 14:07 | PC.NURSE ---
THIS RN ASSUMED CARE AT THIS TIME.
[2023-08-28 14:15] LABS: Basophils # 0.1 10^3/uL (0.0-0.1); Basophils % 0.4 %; Eosinophils # 0.1 10^3/uL (0.0-0.8); Hematocrit 36.3 % (36-47); Lymphocytes # 2.5 10^3/uL (0.8-4.8); Lymphocytes % 20.3 %; Mean Corpuscular HGB Conc 33.3 g/dL (30-55); Mean Corpuscular Hemoglobin 28.9 pg (27-33); Mean Corpuscular Volume 86.8 fl (85-98); Mean Platelet Volume 8.7 fL (7.4-10.4); Monocytes # 1.2 10^3/uL (0.2-0.9); Monocytes % 9.5 %; Neutrophils # 8.39 10^3/uL (1.8-7.7); Neutrophils % 68.3 %; Nucleated Red Blood Cells % 0 %; Platelet Count 410 10^3/cmm (157-399); Red Blood Count 4.18 10^6/uL (3.85-5.65); Red Cell Distribution Width 12.3 % (12.1-15.1); White Blood Count 12.29 10^3/uL (3.29-11.43)
--- NOTE | 2023-08-28 14:23 | USCV_ITS ---
Hallie Agosto Age: 48 Gender: F : 1975 Exam Date: 08/28/2023 15:15 Ordering Phys: Kennedy Perez DO Technologist: [place] Exam Location: [facility] – [place] Indication: LE Pain. Lt knee replacement HISTORY: Status post knee surgery. PROCEDURES: Venous duplex imaging was performed in only the left lower extremity. The following venous structures were evaluated: common femoral vein, profunda vein, proximal portion of the greater saphenous vein, superficial femoral vein, and the popliteal vein. In addition, the posterior tibial and peroneal trunk were evaluated. Serial compression, augmentation maneuvers, and spectral Doppler flow evaluation were performed. FINDINGS: No evidence of DVT seen in any vessel visualized at this time. CONCLUSIONS No evidence of left lower extremity DVT. Sharath Matthews MD (Electronically Signed) Final Date: 28 August 2023 17:44 S
[2023-08-28 14:30] LABS: Alanine Aminotransferase 33 U/L (0-33); Albumin Level 3.9 g/dL (3.5-5.2); Alkaline Phosphatase 87 U/L (35-105); Anion Gap 13.8 (5-19); Aspartate Amino Transferase 35 U/L (0-32); Blood Urea Nitrogen 14 mg/dL (6-20); Calcium 9.2 mg/dL (8.5-10.5); Carbon Dioxide 26 mmol/L (22-29); Chloride 98 mmol/L (98-107); Globulin 3.1 g/dL (1.3-4.6); Glomerular Filtration Rate 66.8 mL/min (90-130); Glucose 119 mg/dL (65-115); Osmolality Calculated 280 mOsm/kg (285-295); Potassium 3.8 mmol/L (3.5-5.1); Sodium 134 mmol/L (136-145)
[2023-08-28] MEDS: ondansetron 2 mg/ML SDV 2 mL 4 MG IVP (14:42)
[2023-08-28] MEDS: morphine 4 mg/mL SDV 1 mL IVP ×2 (14:45→16:20)
--- NOTE | 2023-08-28 15:30 | XR_ITS ---
WS: [id number] Exam: XR chest 1V portable [id number] Date/Time of Exam: 08/28/2023 3:47 PM Reason For Exam: dyspnea/cough No priors. Findings: The lungs are clear and fully expanded. Costophrenic angles are sharp. No infiltrates. Bronchovascula r relief appears normal. Cardiac silhouette is unremarkable. Bony elements are intact. IMPRESSION: Unremarkable chest radiograph.
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
[2023-08-28 17:20] LABS: Add Urine Microscopic? YES; Bilirubin Urine Neg (Negative); Blood Urine 2+ (Negative); Glucose Urine UA Norm (Normal); Ketones Urine Negative (Negative); Leukocyte Esterase Urine Negative (Negative); Nitrate Urine Negative (Negative); Protein Urine Neg (Negative); Specific Gravity, Urine 1.015 (1.005-1.030); Urine Appearance SL Hazy (CLEAR); Urine Color Yellow (Yellow); Urobilinogen Urine Norm (Negative); pH Urine 7 (5-7)
[2023-08-28 17:44] LABS: Amorphous Sediment Urine 1+ /hpf; Bacteria Urine TRACE /hpf; Mucus Urine 2+ /hpf; RBC Urine 0-4 /hpf (0-2); Squamous Epithelial Cell Urine 0-4 /hpf (0-5); WBC Urine 0-4 /hpf (0-5)
[2023-08-28 17:45] LABS: Add Urine Culture? No
== END 2023-08-28 18:08 | disposition home or self-care (01) ==
PROVIDERS: Emergency Provider Family Medicine; PCP Clinical Nurse Specialist Adult Health
DX: G89.18 Other acute postprocedural pain (principal); R50.9 Fever, unspecified; Z79.82 Long term (current) use of aspirin; Z87.891 Personal history of nicotine dependence; E78.5 Hyperlipidemia, unspecified
CPT/HCPCS: 71045; 73562; 80053; 81001; 85025; 93971; 96374; 96375; 96376; 99284; J2270; J2405

== ENCOUNTER 2023-09-15 06:00 | Outpatient (RCR) | payer OTHER, SELFPAY | END 2023-10-15 23:59 | disposition home or self-care (01) | LOC: SPT 06:00 | PROVIDERS: PCP Clinical Nurse Specialist Adult Health; Visit Provider Student in an Organized Health Care Education/Training Program | DX: M17.12 Unilateral primary osteoarthritis, left knee (principal) | CPT/HCPCS: 97110; 97112; 97116; 97140 ==

== ENCOUNTER → 2023-09-16 08:59 | Outpatient (BNVA) | payer OTHER, SELFPAY | PROVIDERS: PCP Clinical Nurse Specialist Adult Health; Visit Provider Student in an Organized Health Care Education/Training Program | DX: Z96.652 Presence of left artificial knee joint (principal) | CPT/HCPCS: 73560; 73565; 99024 ==

== ENCOUNTER 2023-10-16 06:00 | Outpatient (RCR) | payer OTHER, SELFPAY | END 2023-11-13 23:59 | disposition home or self-care (01) | LOC: SPT 06:00 | PROVIDERS: PCP Clinical Nurse Specialist Adult Health; Visit Provider Student in an Organized Health Care Education/Training Program | DX: M17.12 Unilateral primary osteoarthritis, left knee (principal) | CPT/HCPCS: 97110; 97112 ==

== ENCOUNTER → 2023-10-28 08:29 | Outpatient (BNVA) | payer OTHER, SELFPAY | PROVIDERS: PCP Clinical Nurse Specialist Adult Health; Visit Provider Student in an Organized Health Care Education/Training Program | DX: Z96.652 Presence of left artificial knee joint (principal) | CPT/HCPCS: 73560; 73565; 99024 ==

== ENCOUNTER 2023-11-14 06:00 | Outpatient (RCR) | payer OTHER, SELFPAY | END 2023-12-14 23:59 | disposition home or self-care (01) | LOC: SPT 06:00 | PROVIDERS: PCP Clinical Nurse Specialist Adult Health; Visit Provider Student in an Organized Health Care Education/Training Program | DX: M17.12 Unilateral primary osteoarthritis, left knee (principal) | CPT/HCPCS: 97110 ==

== ENCOUNTER → 2023-11-27 08:07 | Outpatient (BNVA) | payer OTHER, SELFPAY | PROVIDERS: PCP Clinical Nurse Specialist Adult Health; Visit Provider Physician Assistant | DX: Z96.652 Presence of left artificial knee joint (principal) | CPT/HCPCS: 73560; 73565; 99024 ==

== ENCOUNTER 2023-12-15 06:00 | Outpatient (RCR) | payer OTHER, SELFPAY | END 2024-01-06 23:59 | disposition home or self-care (01) | LOC: SPT 06:00 | PROVIDERS: PCP Clinical Nurse Specialist Adult Health; Visit Provider Student in an Organized Health Care Education/Training Program | DX: M17.12 Unilateral primary osteoarthritis, left knee (principal) | CPT/HCPCS: 97110 ==

== ENCOUNTER → 2024-02-26 10:44 | Outpatient (BNVA) | payer OTHER, SELFPAY | PROVIDERS: PCP Clinical Nurse Specialist Adult Health; Visit Provider Student in an Organized Health Care Education/Training Program | DX: Z96.652 Presence of left artificial knee joint (principal) | CPT/HCPCS: 73560; 73565 ==

== ENCOUNTER → 2025-03-30 08:09 | Outpatient (BNVA) | payer OTHER, SELFPAY | PROVIDERS: PCP Nurse Practitioner Family; Visit Provider Student in an Organized Health Care Education/Training Program | DX: M25.562 Pain in left knee (principal); M17.11 Unilateral primary osteoarthritis, right knee; Z96.652 Presence of left artificial knee joint | CPT/HCPCS: 73560; 73565 ==

== ENCOUNTER 2025-03-30 10:10 | Outpatient (CLI) | payer OTHER, SELFPAY | END 2025-03-30 10:11 | disposition home or self-care (01) | LOC: SPT 10:10 | PROVIDERS: PCP Nurse Practitioner Family; Visit Provider Student in an Organized Health Care Education/Training Program | DX: Z46.89 Encounter for fitting and adjustment of other specified devices (principal); M25.562 Pain in left knee | CPT/HCPCS: L1812 ==

== ENCOUNTER 2025-03-31 07:52 | Outpatient (CLI) | payer OTHER, SELFPAY ==
--- NOTE | 2025-03-31 07:58 | MM_ITS ---
WS: [id number] SCREENING DIGITAL TOMOSYNTHESIS MAMMOGRAM WITH CAD HISTORY: SCREENING COMPARISON: None available. Bilateral CC and MLO with tomosynthesis views submitted. Synthetic mammography reviewed. Computer aided detection analyzed. Breast composition: There are scattered areas of fibroglandular density. No suspicious masses, microcalcifications or architectural distortion. MM/MM scr BI tomosynthesis [id number] IMPRESSION: BI-RADS: 1 - Negative. FOLLOW UP: 1 Year Follow-up
== END 2025-03-31 07:53 | disposition home or self-care (01) ==
LOC: RAD 07:54
PROVIDERS: PCP Nurse Practitioner Family; Visit Provider Nurse Practitioner Family
DX: Z12.31 Encounter for screening mammogram for malignant neoplasm of breast (principal); R92.323 Mammographic fibroglandular density, bilateral breasts
CPT/HCPCS: 77063; 77067

== ENCOUNTER 2025-04-25 17:38 | Emergency (ER) | payer OTHER, SELFPAY ==
[2025-04-25 17:46] VITALS: BP 125/74; PULSE 84; RESP 16; TEMP 36.8; O2SAT 96; BMI 30.1
[2025-04-25 18:00] VITALS: BP 122/75; RESP 14; O2SAT 92
--- NOTE | 2025-04-25 18:02 | XRR_ITS ---
PROCEDURE INFORMATION: Exam: XR Left Shoulder Exam date and time: 04/25/2025 6:08 PM Age: 49 years old Clinical indication: Injury or trauma; Fall; Blunt trauma (contusions or hematomas); Shoulder; Left TECHNIQUE: Imaging protocol: Radiologic exam of the left shoulder. Views: 2 or more views. COMPARISON: CR XR chest 1V portable [id number] 08/28/2023 3:42 PM FINDINGS: Three views. Bones/joints: Mild degenerative change of the AC joint. Mild degenerative changes of the glenohumeral joint. Vasculature: Mild atheromatous vascular calcifications of the aorta. Lungs: Low lung volumes. Nonspecific although chronic appearing strands at the lung bases. Soft tissues: Normal. XR/XR shoulder LT min 2V* [id number] IMPRESSION: Mild degenerative change of the AC joint. Mild degenerative changes of the glenohumeral joint.
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
[2025-04-25 18:24] VITALS: BP 111/71; PULSE 77; O2SAT 93
== END 2025-04-25 18:34 | disposition home or self-care (01) ==
PROVIDERS: Emergency Provider Emergency Medicine; PCP Nurse Practitioner Family
DX: S49.92XA Unspecified injury of left shoulder and upper arm, initial encounter (principal); Z87.891 Personal history of nicotine dependence; E78.5 Hyperlipidemia, unspecified; W19.XXXA Unspecified fall, initial encounter
CPT/HCPCS: 73030; 99283

== ENCOUNTER → 2025-05-03 08:31 | Outpatient (BNVA) | payer OTHER, SELFPAY | PROVIDERS: PCP Nurse Practitioner Family; Visit Provider Podiatrist Foot & Ankle Surgery | DX: M21.611 Bunion of right foot (principal); M21.612 Bunion of left foot | CPT/HCPCS: 73630 ==

== ENCOUNTER 2025-05-13 10:17 | Outpatient (CLI) | payer OTHER, SELFPAY ==
--- NOTE | 2025-05-13 10:24 | MR_ITS ---
WS: [id number] MRI LEFT SHOULDER HISTORY: LEFT JOINT SHOULDER PAIN COMPARISON: Radiographs 04/25/2025 TECHNIQUE: Multiplanar sequences of the shoulder joint are submitted. Mild AC joint arthropathy. Small amount of fluid in the subacromial and subdeltoid bursa. Mild subacromial impingement. No os acromion. Biceps tendon remains positioned in the bicipital groove. There is a small amount of increased T2 signal in the biceps tendon just proximal to the bicipital groove. Large area of focal marrow edema involving the posterior lateral humeral head. Very mild narrowing of the glenohumeral joint. Increased T2 signal with thickening of the distal supraspinatus tendon. No tear is identified. No muscle atrophy or edema. Subscapularis tendon and the infraspinatus tendons are intact. No labral tear. MR/MR shoulder LT wo con* [id number] IMPRESSION: 1. Focal marrow edema in the posterolateral humeral head consistent with a rec ent posttraumatic contusion to the bone. 2. Small amount of fluid in the subacromial and subdeltoid bursa may be relate d to the recent trauma. 3. Moderate tendinopathy distal supraspinatus tendon but no tear. There may be a component of contusion to the supraspinatus tendon due to the thickening and the adjacent bone and soft tissue edema. 4. Mild subacromial impingement. 5. No labral tear.
== END 2025-05-13 10:18 | disposition home or self-care (01) ==
LOC: RAD 10:20
PROVIDERS: PCP Nurse Practitioner Family; Visit Provider Nurse Practitioner Family
DX: M67.814 Other specified disorders of tendon, left shoulder (principal); R60.0 Localized edema; M75.42 Impingement syndrome of left shoulder; M12.812 Other specific arthropathies, not elsewhere classified, left shoulder; R93.7 Abnormal findings on diagnostic imaging of other parts of musculoskeletal system
CPT/HCPCS: 73221

== ENCOUNTER → 2025-06-01 13:40 | Outpatient (BNVA) | payer OTHER, SELFPAY | PROVIDERS: PCP Nurse Practitioner Family; Visit Provider Student in an Organized Health Care Education/Training Program | DX: M25.512 Pain in left shoulder (principal); S49.92XA Unspecified injury of left shoulder and upper arm, initial encounter; M75.42 Impingement syndrome of left shoulder; W18.39XA Other fall on same level, initial encounter; Y99.0 Civilian activity done for income or pay | CPT/HCPCS: 73030 ==

== ENCOUNTER 2025-07-08 10:49 | Outpatient (CLI) | payer OTHER, SELFPAY ==
--- NOTE | 2025-07-08 11:06 | XR_ITS ---
WS: [id number] Right knee, 4 views, 07/08/2025 Clinical Data: M17.11 - Unilateral primary osteoarthritis, right knee Comparison: Left knee, AP both knees, 03/30/2025 Findings: No fractures or dislocations are seen. There is medial joint compartment narrowing with a small spur of the medial tibial plateau and medial femoral condyle. The right patella shows no irregularity. The soft tissues are unremarkable. XR/XR knee RT 3V* [id number] Impression: Medial joint compartment narrowing of the right knee.
[2025-07-08 11:45] LABS: Hematocrit 44.0 % (36-47); Hemoglobin 14.40 g/dL (11.27-16.99); Mean Corpuscular HGB Conc 32.7 g/dL (30-55); Mean Corpuscular Hemoglobin 28.1 pg (27-33); Mean Corpuscular Volume 85.8 fl (85-98); Nucleated Red Blood Cells % 0 %; Platelet Count 416 10^3/cmm (157-399); Red Blood Count 5.13 10^6/uL (3.85-5.65); White Blood Count 7.37 10^3/uL (3.29-11.43)
[2025-07-08 11:46] LABS: Glucose Urine UA Negative (Normal); Nitrate Urine Negative (Negative); Specific Gravity, Urine 1.024 (1.005-1.030)
[2025-07-08 11:51] LABS: Add Urine Microscopic? YES
[2025-07-08 12:06] LABS: Alanine Aminotransferase 23 U/L (0-33); Albumin Level 4.4 g/dL (3.5-5.2); Alkaline Phosphatase 80 U/L (35-105); Anion Gap 14.8 (5-19); Blood Urea Nitrogen 14 mg/dL (6-20); Calcium 8.9 mg/dL (8.5-10.5); Carbon Dioxide 26 mmol/L (22-29); Chloride 102 mmol/L (98-107); Globulin 2.6 g/dL (1.3-4.6); Glucose 100 mg/dL (65-115); Osmolality Calculated 289 mOsm/kg (285-295); Potassium 3.8 mmol/L (3.5-5.1); Sodium 139 mmol/L (136-145); Total Protein 7.0 g/dL (6.6-8.7)
[2025-07-08 12:10] LABS: UA Slide Review UA Slide Review Perf
[2025-07-08 12:13] LABS: Aspartate Amino Transferase 21 U/L (0-32)
== END 2025-07-08 10:50 | disposition home or self-care (01) ==
PROVIDERS: PCP Nurse Practitioner Family; Visit Provider Student in an Organized Health Care Education/Training Program
DX: Z01.818 Encounter for other preprocedural examination (principal); M25.861 Other specified joint disorders, right knee
CPT/HCPCS: 36415; 73562; 80053; 81001; 85025

== ENCOUNTER 2025-07-19 07:32 | Outpatient (CLI) | payer OTHER, SELFPAY ==
--- NOTE | 2025-07-19 07:30 | CT_ITS ---
WS: [id number] CT RIGHT KNEE, NONCONTRAST [facility] TECHNIQUE: Noncontrast CT of the RIGHT knee to include the RIGHT hip and ankle. CLINICAL INFORMATION: RIGHT TOTAL KNEE ARTHROPLASTY DLP: 965.[address] scans at [facility] use at least one of these dose optimization techniques: automated exposure control; mA and/or kV adjustment per patient size (includes targeted exams where dose is matched to clinical indication); or iterative reconstruction. FINDINGS: Advanced tricompartmental arthritis RIGHT knee. Small joint effusion. Hypertrophic changes along the joint line. Vascular calcification. Few sigmoid diverticuli. CT/CT knee RT DELONTE [id number] IMPRESSION: Images obtained for preoperative purposes.
== END 2025-07-19 07:33 | disposition home or self-care (01) ==
PROVIDERS: PCP Nurse Practitioner Family; Visit Provider Student in an Organized Health Care Education/Training Program
DX: M17.11 Unilateral primary osteoarthritis, right knee (principal); M25.461 Effusion, right knee
CPT/HCPCS: 73700

== ENCOUNTER → 2025-07-27 09:26 | Outpatient (BNVA) | payer OTHER, SELFPAY | PROVIDERS: PCP Nurse Practitioner Family; Visit Provider Registered Nurse Neonatal Intensive Care | DX: Z01.818 Encounter for other preprocedural examination (principal) | CPT/HCPCS: 81000 ==

== ENCOUNTER 2025-08-01 15:33 | Observation (INO) | payer OTHER, SELFPAY ==
[2025-08-01] VITALS (16 sets, daily range): BP systolic 107–139; BP diastolic 62–105; PULSE 52–99; RESP 16–20; TEMP 36.2–36.7; O2SAT 90–100; BMI 29.7; BMI 33.3
[2025-08-01] MEDS: acetaminophen 1,000 MG/100 ML PIGGYBACK 400 MG IV ×3 (12:01→23:14)
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
[2025-08-01 12:21] LABS: Hematocrit 44.2 % (36-47); Hemoglobin 14.50 g/dL (11.27-16.99); Mean Corpuscular HGB Conc 32.8 g/dL (30-55); Mean Corpuscular Hemoglobin 28.2 pg (27-33); Mean Corpuscular Volume 85.8 fl (85-98); Nucleated Red Blood Cells % 0 %; Platelet Count 419 10^3/cmm (157-399); Red Blood Count 5.15 10^6/uL (3.85-5.65); White Blood Count 7.89 10^3/uL (3.29-11.43)
[2025-08-01 12:47] LABS: Anion Gap 11.0 (5-19); Blood Urea Nitrogen 12 mg/dL (6-20); Calcium 8.5 mg/dL (8.5-10.5); Carbon Dioxide 26 mmol/L (22-29); Chloride 105 mmol/L (98-107); Glucose 158 mg/dL (65-115); Osmolality Calculated 289 mOsm/kg (285-295); Potassium 4.0 mmol/L (3.5-5.1); Sodium 138 mmol/L (136-145)
[2025-08-01] MEDS: ceFAZolin 2,000 MG in sodium chloride 0.9% (plus) 50 ML 100 MG IV ×2 (12:55→20:15)
[2025-08-01] MEDS: tranexamic acid 1,000 mg/10mL SDV 1000 MG IV (13:05)
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
[2025-08-01] MEDS: ROPivacaine 0.2% Premix 100 mL 200 MG INTRA-ARTI (13:45)
[2025-08-01] MEDS: tranexamic acid 1,000 mg/10mL SDV 1000 MG XX (13:45)
--- NOTE | 2025-08-01 14:38 | W.PM.BPON ---
Date of Procedure: 08/01/2025 Surgeon: Brooks Wall DO Water Treatment Plant Mechanic(s): Derek Wall PA-C Procedure(s) performed: Right total knee arthroplasty?Froilan robotic assisted Findings of the procedure(s): Underwent procedure as planned without issues or complications taken recovery in stable condition Estimated blood loss: 25 mL Specimen(s) removed: Tibia femur and patellar bone cuts removed Post-operative diagnosis: Right knee DJD
--- NOTE | 2025-08-01 14:41 | P.OP_ITS ---
Operative Report Date of procedure: August 01, 2025 Surgeon: Brooks Wall DO Minibus Driver: Derek Wall PA-C: PA was necessary for assistance in this case with leg positioning retraction and protection of neurovascular structures as well as assistance in implantation wound closure and dressing application. Procedure: Preoperative diagnosis: Right knee degenerative joint disease Post-op diagnosis: Same Procedure done: Right total knee arthroplasty, cemented?robotic assisted Froilan Implants: Dino triathlon size 4 femur CR cemented?Right [place] triathlon size? 4 tibia universal baseplate cemented Dino triathlon symmetric patella size 29 mm [place] triathlon polyethylene 11mm Surgeon: Brooks Wall DO Estimated blood?loss: 25 mL Tourniquet 58mins IV fluids: 1800 mL Urine output: 700 mL Complications: None Condition: stable Disposition: floor Brief History: Patient is a 50-year-old female with with chronic?Right knee degenerative joint disease.? Patient has been worked up in the outpatient setting in the orthopedic office at this point time through shared decision making given? [id number] arthritis as well as failed conservative treatment, and pt would?like to proceed with a?Right total knee arthroplasty.? Through shared decision making elected to proceed with surgical intervention for?Right total knee arthroplasty?Froilan robotic assisted.? We talked about continued conservative treatment and surgical intervention as far as the risk benefits complications alternatives surgical and nonsurgical treatment options.? At this point time understanding patient risks with surgery patient agrees to proceed with surgical intervention.? Once again? risk with surgery include but are not?limited to make it better make it worse blood clot, heart attack, stroke, on the table, infection, injury to nerves or vessels, persistent pain, arthrofibrosis, implant failure.? Understanding these risks patient agrees to proceed with surgical intervention c onsent was obtained in the preoperative holding area.? All questions answered. Procedure: Patient was seen and evaluated in the preoperative holding area.? Consent was reviewed and signed with patient with plan for?Right total knee arthroplasty.? All questions answered.? Correct extremity marked.? Patient seen and evaluated by the anesthesia department and once cleared for surgery was taken back to the operative suite.? Patient was placed into a supine position on the OR table.? All bony prominences were well-padded.? Patient was appropriately secured to the bed.? Patient underwent anesthesia per the anesthesia department.? Patient received spinal anesthesia and? Christopher catheter was placed.? A nonsterile tourniquet was applied to the?Right thigh.? At this point in time a final timeout performed.? Patient received appropriate preoperative antibiotics and TXA. Next the?Right?lower extremity was then prepped and draped in standard orthopedic fashion. Esmarch tourniquet was used exsanguinate the?Right?lower extremity.? Tourniquet was insufflated to 250 mmHg. A standard anterior incision was made over midline of the knee.? Sharp scalpel excision through skin and subcutaneous tissue full-thickness skin flaps were made.? Fascia was elevated off of the extensor retinaculum was stable with medial parapatellar arthrotomy was then made.? The performed standard sequential releases..? Immediately on entry into the joint patient was found to have severe eburnated bone and tricompartmental arthritic changes noted.? With significant osteophyte formation.? Next the the patella was then stuffed and the knee was then flexed.?? Arnaldo was placed superiorly around the anterior aspect of the femur this was freed of synovium and I subsequently then placed by 2 femur pins to establish my femur arrays for the Froilan robot.? These were then placed bicortically and? femur array was then appropriately secured with appropriate visualization.? Next attention was turned towards the tibial rays.? These were then drilled sequentially bicortically in parallel fashion and intraincisional.? I then placed my guide as well as my tibial array on in place.? This was appropriately secured and had excellent visualization with the Froilan robot.? Next the tibial checkpoint as well as femur checkpoint were then placed.? At this point time I then subsequently established my head center as well as my medial?lateral malleoli as well as my checkpoints.? Next utilizing standard Froilan technology I then mapped out the appropriate points and confirmation points around the femur as well as the tibia in standard fashion.? Once this was then done I then removed all osteophytes in preparation for dynamic testing.? All osteophytes were removed as well as I removed the ACL and the PCL was excised due to its significant tearing and degeneration noted.? At this point time the knee was brought into full extension and we performed our standard evaluation of our gap balancing stressing his?ligaments and extension as well as flexion appropriate adjustments were made to have appropriate gap balancing in both flexion and extension.? This plan for final cuts were made to correct patient's varus deformity within ligamentous tolerances. We get a preoperative plan evaluating our implants which was a size 4 femur and a size 4 tibia.? Next we brought in the Froilan robot and sequentially made our femur cuts.? All excess bony cuts were then removed.? Finally we made our tibial cut.? Once this was done a standard PCL retractor was then placed into this position I excised the medial and?lateral meniscus.? The tibial cut was then subsequently removed all excess bony debris was removed.? I then utilized a?lamina hair spring winder and remove the posterior osteophytes.? At this point time sized the tibia and confirmed this was a size 4.? I utilized our blunt probe to establish rotation of tibial implant.? Once this was done I then placed my tibia size 4 trial in appropriate position and then subsequently placed tibial pins to hold this into place and trialed up to size 11 mm poly as well as a size 4 femur which was appropriately impacted in place knee was then subsequently brought into extension. Trials were then assessed,? this was stable with varus valgus stress in extension as well as had symmetrical translation when brought into flexion demonstrating symmetrical gaps. I had excellent balance gaps in flexion and extension with varus and valgus stresses.? Patient full knee range of motion able to achieve full extension as well as flexion to greater than 120 degrees. At this point I was satisfied with these implants these were then verified and opened on the back table size 4 tibia, size4 femur,? size 11 mm polythickness.? We did confirm appropriate gap balancing and stresses as well as alignment utilizing? Froilan and were satisfied with this plan.? ?At this point time with my trials in place I then towel clip the patella everted this made appropriate measurements subsequently utilizing freehand technique performed by patellar resurfacing this was confirmed to be appropriate resection and subsequently sized to be a 29 mm symmetric.? My drill peg guides were then clamped and appropriate position and appropriate position in the patella for appropriate tracking and parallel with the joint.? Pegs were drilled trial implant was placed and the knee was then subsequently ranged and found to have excellent patellar tracking.? Femur pegs were then drilled.?At this point time all of our trial implants were removed.? All checkpoints as well as guidepins and arrays were removed and appropriate counts made. Satisfied with our tibial placement rotation I then utilized the keel punch and prepped the tibia.? The wound bed? was thoroughly irrigated and dried and prepped for cementation.? Cement was mixed on the back table.? Once cement was ready this was then covered onto the tibia and the tibial baseplate was then impacted and all excess cement was removed.? Next the polyethylene was then impacted into place on the tibial baseplate.? Next cement was placed onto the femur as well as under the femur implants and impacted in to place and all excess cement was extruded and removed.? Knee was taken into full extension? to clear all excess cement was removed.? Warm saline was placed over the joint.? I then towel clip patella and dried for cementation. cemented the patella into place.? This was all clamped and the cement was allowed to cure.? Thorough irrigation performed with pulse?lavage.? I then placed my periarticular injection while the cement was curing.? Once cured the knee was taken through range of motion and had excellent stability and gaps were balanced in flexion and extension.? Tourniquet was then deflated. hemostasis satisfactory with electrocautery.? Next I then subsequently closed the capsule with Ethibond suture as well as a running strata fix suture.? Knee was then taken through range of motion 30 times.? Next the skin was then closed in?layered fashion of running stratifix sutures of deep and subcutenous tissue and skin.? ?closed in flexion and Prineo glue was then placed over the incision this allowed to cure.? Incision was covered with Silverlon, with ABDs soft roll and Jamin wrap.? Patient was then awakened from anesthesia and taken to PACU in stable condition. Disposition: Patient taken to PACU in stable condition will be admitted to the [facility] for pain control PT/OT weight-bear as tolerated?Right?lower extremity dressing changes as needed, DVT prophylaxis. Pain control. Patient will receive appropriate postoperative antibiotics. patient will be seen today by the internal medicine team for medical management.? Patient will follow up with the office in 2 weeks.? Patient understands agrees with current plan.? All questions answered.
--- NOTE | 2025-08-01 14:49 | XRR_ITS ---
PROCEDURE INFORMATION: Exam: XR Right Knee Exam date and time: 08/01/2025 2:58 PM Age: 50 years old Clinical indication: Device placement; Joint replacement hardware; Prior surgery; Surgery date: Post-operative (0-2 days); Surgery type: R tka; Additional info: S/P R tka TECHNIQUE: Imaging protocol: Radiologic exam of the right knee. Views: 1 or 2 views. COMPARISON: CT knee RT [facility] [id number] 07/19/2025 8:14 AM FINDINGS: Bones/joints: Postsurgical changes from right knee arthroplasty. Hardware is intact without malalignment or periprosthetic fracture. Expected postsurgical air in the joint and soft tissues seen. XR/XR knee RT 1-2V [id number] IMPRESSION: Expected postsurgical changes without radiographic complications.
--- NOTE | 2025-08-01 15:04 | PM.PACU ---
PACU note Narrative: Patient is a 50-year-old female who just underwent a right total knee arthroplasty. Pt transferred to PACU in stable condition. Dressing is dry. pt is awake and alert. pt can wiggle toes and plantarflex and dorsiflex foot. pt able to perform straight leg raise, Femoral nerve intact. Distal pulses are palpable toes are warm and well-perfused. Cap refill is normal and under 2 seconds. Sensation to foot is intact. Pain is controlled. Exam: awake Disposition: admitted
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
--- NOTE | 2025-08-01 15:32 | ANES.PROC ---
Anesthesia Procedures Procedure/Date: 08/01/25 Nerve Block ^: Nerve Block 1: Main Anesthesia: other (2 mg Versed given prior to block) Time Out Performed: Yes Consent: requested by attending/covering physician and from patient Laterality: Right Nerve block location: adductor canal Anesthesia monitors applied: pulse oximetry, EKG, BP cuff and oxygen Nerve block position: supine Anesthetic Used: ropivicaine 0.5% Amount of anesthesia used (mL): 15 Ultrasound used to: recognize landmarks Nerve Stimulator Used?: Yes Interscalene/Femoral BLK: other needle (pjunk 4inch) Injection: neg aspiration of heme Patient Tolerated Procedure: well Complications: none
--- NOTE | 2025-08-01 16:00 | ANE.PACU2 ---
Inpatient post-anesthesia follow up: Airway intact: Yes Vital signs: Temperature 97.8 F Pulse Rate 67 Respiratory Rate 16 Blood Pressure 115/85 Pulse Oximetry 99 Oxygen Delivery Me thod Room Air Oxygen Flow Rate Fraction of Inspir ed Oxygen Hydration adequate: Yes Nausea and vomiting: No Pain level: 1 Mental status: Baseline
[2025-08-01] MEDS: calcium carb-vit d 600mg/400unit 1 Tablet 1 EACH PO (16:44)
[2025-08-01] MEDS: sennosides-docusate Tablet 2 TAB PO (16:44)
[2025-08-01] MEDS: chlorhexidine gluconate 0.12% Btl 473 mL 30 ML MUCOUS MEM ×2 (16:45→23:12)
[2025-08-01] MEDS: mupirocin oint 22 gm 1 APPLIC NASAL (16:45)
[2025-08-01] MEDS: HYDROmorphone 0.5 MG/0.5 ML INJ IVP (16:46)
[2025-08-01] MEDS: oxyCODONE 5 mg IR Tab/Cap PO (19:37)
[2025-08-01] MEDS: tranexamic acid 1,000 MG/100 ML PREMIX 600 MG IV (20:16)
[2025-08-02 02:52] VITALS: RESP 18
[2025-08-02] MEDS: oxyCODONE 5 mg IR Tab/Cap PO ×3 (02:52→12:02)
[2025-08-02 04:11] LABS: Hematocrit 40.6 % (36-47); Hemoglobin 12.70 g/dL (11.27-16.99); Mean Corpuscular HGB Conc 31.3 g/dL (30-55); Mean Corpuscular Hemoglobin 28.5 pg (27-33); Mean Corpuscular Volume 91.2 fl (85-98); Nucleated Red Blood Cells % 0 %; Platelet Count 348 10^3/cmm (157-399); Red Blood Count 4.45 10^6/uL (3.85-5.65); White Blood Count 10.91 10^3/uL (3.29-11.43)
[2025-08-02 04:29] LABS: Anion Gap 14.1 (5-19); Blood Urea Nitrogen 10 mg/dL (6-20); Calcium 8.7 mg/dL (8.5-10.5); Carbon Dioxide 23 mmol/L (22-29); Chloride 108 mmol/L (98-107); Glucose 106 mg/dL (65-115); Osmolality Calculated 291 mOsm/kg (285-295); Potassium 4.1 mmol/L (3.5-5.1); Sodium 141 mmol/L (136-145)
[2025-08-02] MEDS: multivitamin therapeutic Tablet 1 TAB PO (05:09)
[2025-08-02] MEDS: ceFAZolin 2,000 MG in sodium chloride 0.9% (plus) 50 ML 100 MG IV (05:09)
[2025-08-02] MEDS: calcium carb-vit d 600mg/400unit 1 Tablet 1 EACH PO (05:09)
[2025-08-02] MEDS: chlorhexidine gluconate 0.12% Btl 473 mL 30 ML MUCOUS MEM ×2 (05:10→12:03)
[2025-08-02] MEDS: mupirocin oint 22 gm 1 APPLIC NASAL (05:11)
[2025-08-02] MEDS: sennosides-docusate Tablet 2 TAB PO (05:12)
[2025-08-02 07:18] VITALS: BP 106/77; PULSE 84; RESP 16; TEMP 36.9; O2SAT 98
[2025-08-02 07:24] VITALS: RESP 17; O2SAT 98
--- NOTE | 2025-08-02 07:24 | P.PN_ITS ---
Subjective 2 Subjective: Patient was seen and examined at bedside on hospital rounds today. Patient sitting up in bed stating that she has some right knee pain, but she has gotten up to use the bathroom twice this morning and felt that she tolerated ambulation fairly well. Patient had some mild nausea this morning, better controlled. Eating and drinking well. Currently awaiting physical therapy recommendations, however patient states that she would like outpatient PT through [facility]. Vital signs are stable, labs reviewed and stable this morning. Hospitalist team is grateful for the opportunity to consult the medical management of this patient. Patient is cleared for discharge from a medical standpoint, will defer to attending on discharge recommendations. Vitals/I&O/Wt Last Vital Signs Temp 98.5 F 08/02/25 07:18 Pulse 84 08/02/25 07:18 Resp 16 08/02/25 07:18 BP 106/77 08/02/25 07:18 Pulse Ox 98 08/02/25 07:18 O2 Del Method Room Air 08/02/25 07:18 08/01/25 08/02/25 08/02/25 22:59 06:59 14:59 Intake Total 830 / 1780 1035 / 2815 Output Total 900 / 1545 1000 / 2545 Balance -70 / 235 35 / 270 Weight last 48 hrs Weight 87.543 kg Weight 87.997 kg Weight 76.204 kg Physical Exam 2 Narrative: Patient is a very pleasant 50-year-old female status post right total knee, sitting up in bed, conversant, in no apparent distress stating right leg pain/tingling. Const: COMMON NORMALS: no acute distress, patient oriented x3 and healthy appearing HENMT: COMMON NORMALS: normocephalic, atraumatic, Normal external nose present and moist oral mucous membranes HEAD & SCALP: normocephalic and atraumatic NOSE: Normal external nose present Eye: COMMON NORMALS: Equal, round and reactive pupils present PUPIL: Yes Equal, round and reactive pupils present Neck/C-Spine: COMMON NORMALS: no JVD Resp: COMMON NORMALS: normal respiratory effort and clear to auscultation bilaterally AUSCULTATION: clear to auscultation bilaterally Cardio: COMMON NORMALS: no JVD, regular rate, regular rhythm, S1 normal heart sound present and S2 normal heart sound present RATE: regular rate RHYTHM: regular rhythm HEART SOUNDS: S1 normal heart sound present and S2 normal heart sound present GI: COMMON NORMALS: Normal to inspection, nondistended, normoactive bowel sounds present, Soft to palpation and non-tender PALPATION: Yes Soft to palpation Extremity: COMMON NORMALS: normal to inspection and no calf tenderness O THER: Right knee incision covered, right leg wrapped in Jamin bandage, no drainage noted, good pedal pulses Neuro: COMMON NORMALS: patient oriented x3, CN's II-XII intact bilaterally and no focal motor deficits Psych: COMMON NORMALS: mental status grossly normal, cooperative, normal affect and speech normal SPEECH: Yes normal speech Skin: OTHER: Skin is warm, dry, surgical incision over right knee covered with dressing not visualized this examination, no visible drainage Urinary Catheter Management: Christopher: Cath Placed During This Visit: yes, but has since been removed by the nurse Reason for Continuing Indwelling Catheter: Decision to DC Catheter Urinary Catheter Date of Insertion: 08/01/25 Urinary Catheter Time of Insertion: 13:05 Date Urinary Catheter Removed: 08/02/25 Time Urinary Catheter Discontinued: 05:50 Data 08/02/25 04:00 08/02/25 04:00 A&P Assessment and plan 1. Status post total left knee replacement using cement: 2. Post-op pain: 3. Right knee DJD: 4. Hyperlipidemia: 5. Depression: Plan: S/p Right total Knee 08/01/2025 Right knee DJD Per Attending Orthopedic Surgeon : - Ice and elevate as needed - Hold on therapy for the next week - Encourage range of motion as tolerated - Weight-bear as tolerated to operative extremity - Encourage incentive spirometry - Multi-modal Pain control - Greatly appreciate case management in discharge planning Hyperlipidemia - Continue home dosing Lipitor 40 mg daily Depression - Stable - Continue home dosing Cymbalta 60 mg daily VTE PPX: ASA 325mg PO BID Code Status: Full Code PDMP PDMP Reviewed: Not Reviewed Attestations 2 Medical Necessity Statement*: Observation: Ongoing care for left TKA, plans for discharge most likely today. Coding Level of Care Code 33257 Diagnoses Status post total left knee replacement using cement Z96.652 Post-op pain G89.18 Right knee DJD M17.11 Hyperlipidemia E78.5 Depression F32.A
[2025-08-02] MEDS: acetaminophen 1,000 MG/100 ML PIGGYBACK 400 MG IV (07:26)
[2025-08-02] MEDS: ondansetron 2 mg/ML SDV 2 mL 4 MG IVP (08:51)
--- NOTE | 2025-08-02 10:16 | PC.CHAP ---
Pastoral Care Encounter/Spiritual Assessment Type of Contact [] Declined ornamenter visit [] Patient/Family/Request visit [] Outpatient visit [] Follow-up visit [] Physician referral [] Code/Alert [x] Routine visit [] Staff referral [] Actively dying [] Patient sleeping [x] Family support [] [] Out of room [] Palliative care [] [] Receiving care in room [] Pre-surgical visit [] Trauma [] Long length of stay [] ICU visit [] Other: Relational/Emotional Strength [x] Patient feels connected with others/family/visitors/staff [] Distress [] Loneliness/isolation [] Abandonment Spirituality of Patient [x] Person of Nicky [] Attends Caodaism of their Nicky [x] Believes in Prayer [] Reads Bible or Presybeterian materials [] There are Spiritual issues to be addressed Stove Tender Interventions [x] Prayer [x] Active listening x] Non-anxious presence [x] Spiritual/emotional support [] Crisis/trauma care [] Spiritual counseling [] Bereavement support [] Provided bereavement packet [] Provided Bible/devotional materials [] Provided toy/stuffed animal, coloring book to patient or family member [] Provided Communion [] Anointing/[place] [] Salvation [x] Completed spiritual assessment [] Other: Impact on Illness or Injury [] Angry [] Fearful [] Anxious [] Often cries [] Exhaustion [] Unable to work [] Unable to attend latter day [] Unable to walk/stand [] Unable to read [] Unable to drive [] Unable to eat/drink [] Unable to sleep [] Unable to be with family [] Patient intubated [] Other: Summary Time spent with patient 5 min
[2025-08-02 11:15] VITALS: BP 121/74; PULSE 67; RESP 16; TEMP 36.6; O2SAT 95
--- NOTE | 2025-08-02 11:29 | PC.PHAR ---
Patient had wrong Medications entered on Patient Profile . Patient had Atorvastatin 40 mg and Duloxetine 60mg entered as current medications. Current Medications should read Citalapram 20 and Rosuvastatin 10mg .
[2025-08-02 12:02] VITALS: RESP 20; O2SAT 95
--- NOTE | 2025-08-02 12:10 | P.DS_ITS ---
Discharge Providers Date of Admission: 08/01/25 15:33 Date of Discharge: August 02, 2025 Attending Provider at Admission: Brooks Wall DO Attending Provider at Discharge: Brooks Wall DO Consults: hospitalist Primary Care Provider: DEDRA Jeong Diagnoses at Discharge Discharge Diagnosis 1. Status post total left knee replacement using cement: 2. Post-op pain: 3. Right knee DJD: 4. Mixed hyperlipidemia: 5. Depression: Reason for Visit Reason for Visit: M17.11 Brief History: Status post right total knee arthroplasty Hospital Course Hospital Course Patient presented to the preoperative holding area with plan for right total knee arthroplasty after patient has been worked up in the outpatient setting for failed conservative treatment of [ right] knee degenerative joint disease. Once cleared by anesthesia for surgery patient subsequently was taken back to the operative suite underwent anesthesia per anesthesia department and then subsequently underwent a [right ] total knee arthroplasty. Procedure was performed without any complications patient was taken to PACU in stable condition patient recovered well in PACU and then was admitted to the floor postoperatively internal medicine was consulted and on board for medical management and assistance with care. Patient received appropriate PT/OT, postoperative antibiotics, postoperative TXA, pain control, postoperative DVT prophylaxis. Elevation and ice. Patient encouraged for knee range of motion allowed weightbearing as tolerated to the operative lower extremity. Dressing was changed as needed, labs were monitored daily. Patient recovered well postoperatively and worked well and progressed well with therapy. It was determined on postoperative day [1 ] the patient was stable for discharge from an orthopedic standpoint and medicine. Patient was comfortable with discharge and plan was discharged home. Patient received appropriate discharge instructions as well as pain medication and DVT prophylaxis postoperatively. Given appropriate instructions for dressing management. Patient will follow-up with Dr. Wall/orthopedics in the office in 2 weeks. All questions answered. Understand if there is any issues questions or concerns and contact the office. Physical Exam Narrative: Right knee examination: Dressing on in place, clean dry and intact. No evidence of saturation. Patient has normal postoperative swelling and tenderness to palpation to the knee. Compartments are soft compressible,'s calf soft and nontender. Sensations intact to light touch distally. Distal pulses are palpable. Patient is able to wiggle toes as well as plantarflex and dorsiflex ankle. Urinary Catheter Management: Christopher: Cath Placed During This Visit: yes, but has since been removed by the nurse Reason for Continuing Indwelling Catheter: Decision to DC Catheter Urinary Catheter Date of Insertion: 08/01/25 Urinary Catheter Time of Insertion: 13:05 Date Urinary Catheter Removed: 08/02/25 Time Urinary Catheter Discontinued: 05:50 Discharge Data Studies Completed and Pending Completed Studies During Hospitalization Category Date Time Status XR knee RT 1-2V 70041 Routine Exams 08/01/25 14:49 Completed Pending at discharge Category Date Time Status Basic Metabolic Panel AM LABS Lab 08/03/25 04:00 Ordered Basic Metabolic Panel AM LABS Lab 08/04/25 04:00 Ordered Complete Blood Count w/Auto AM LABS Lab 08/03/25 04:00 Ordered Complete Blood Count w/Auto AM LABS Lab 08/04/25 04:00 Ordered Radiology Impressions Knee X-Ray 08/01/25 14:49 IMPRESSION: Expected postsurgical changes without radiographic complications. Laboratory Results WBC 10.91 10^3/uL (3.29-11.43) 08/02/25 04:00 Corrected WBC Cancelled 08/01/25 11:50 RBC 4.45 10^6/uL (3.85-5.65) 08/02/25 04:00 Hgb 12.70 g/dL (11.27-16.99) 08/02/25 04:00 Hct 40.6 % (36-47) 08/02/25 04:00 MCV 91.2 fl (85-98) D 08/02/25 04:00 MCH 28.5 pg (27-33) 08/02/25 04:00 MCHC 31.3 g/dL (30-55) 08/02/25 04:00 RDW 12.6 % (12.1-15.1) 08/02/25 04:00 Plt Count 348 10^3/cmm (157-399) 08/02/25 04:00 MPV 8.2 fL (7.4-10.4) 08/02/25 04:00 Gran % Cancelled 08/01/25 11:50 Neut % (Auto) 59.7 % 08/02/25 04:00 Lymph % (Auto) 29.9 % 08/02/25 04:00 [place] % (Auto) 8.4 % 08/02/25 04:00 Eos % (Auto) 1.2 % 08/02/25 04:00 Baso % (Auto) 0.4 % 08/02/25 04:00 Neut # (Auto) 6.52 10^3/uL (1.8-7.7) 08/02/25 04:00 Lymph # (Auto) 3.3 10^3/uL (0.8-4.8) 08/02/25 04:00 [place] # (Auto) 0.9 10^3/uL (0.2-0.9) 08/02/25 04:00 Eos # (Auto) 0.1 10^3/uL (0.0-0.8) 08/02/25 04:00 Baso # (Auto) 0.0 10^3/uL (0.0-0.1) 08/02/25 04:00 Absolute Gran (auto) Cancelled 08/01/25 11:50 Nucleated RBC % (auto) 0 % 08/02/25 04:00 Nucleated RBCs # 0.0 /100WBC 08/02/25 04:00 Sodium 141 mmol/L (136-145) 08/02/25 04:00 Potassium 4.1 mmol/L (3.5-5.1) 08/02/25 04:00 Chloride 108 mmol/L (98-107) H 08/02/25 04:00 Carbon Dioxide 23 mmol/L (22-29) 08/02/25 04:00 Anion Gap 14.1 (5-19) 08/02/25 04:00 BUN 10 mg/dL (6-20) 08/02/25 04:00 Creatinine 0.5 mg/dL (0.5-0.9) 08/02/25 04:00 GFR Calculation 130.6 mL/min (90-130) H 08/02/25 04:00 Glucose 106 mg/dL (65-115) 08/02/25 04:00 Calculated Osmolality 291 mOsm/kg (285-295) 08/02/25 04:00 Calcium 8.7 mg/dL (8.5-10.5) 08/02/25 04:00 Blood Type B Positive 08/01/25 12:24 Rho(D) Type Rh positive 08/01/25 12:24 Antibody Screen Negative 08/01/25 12:24 Vitals Last Vital Signs Temp 97.8 F 08/02/25 11:15 Pulse 67 08/02/25 11:15 Resp 20 H 08/02/25 12:02 BP 121/74 08/02/25 11:15 Pulse Ox 95 08/02/25 12:02 O2 Del Method Room Air 08/02/25 11:15 Discharge Plan Discharge Patient Disposition: Home Condition: Stable Prescriptions: New methocarbamol 500 mg tablet 500 mg PO TID PRN (Reason: muscle spasms/pain) 14 Days Qty: 42 0RF aspirin 325 mg tablet 325 mg PO DAILY 14 Days Qty: 14 0RF calcium carbonate-vitamin D3 [Calcium 600 + D(3)] 600 mg-10 mcg (400 unit) tablet 1 tab PO DAILY 30 Days Qty: 30 0RF cefadroxil 500 mg capsule 500 mg PO BID 7 Days Qty: 14 0RF Continued (DME) economy knee brace See Rx Instructions .Route .MEDSUPPLY Qty: 1 0RF Rx Instructions: As directed citalopram 20 mg tablet 20 mg PO DAILY rosuvastatin 10 mg tablet 10 mg PO DAILY No Action oxycodone 5 mg tablet 5 mg PO Q6H PRN (Reason: pain postop) 7 Days Qty: 28 0RF [employer] Consultant OK for DC: Orthopedics and Hospitalist Discharge Order = DC NOW: Discharge Order (Routine); Ordered 08/02/25 Ordered By: Brooks Wall Other Ambulatory Orders: Physical Therapy Eval and Treat Outpatient (Order) Timeframe: 3 Days Facility: [facility] - Location: Physical Therapy [place] Ordered By: Brooks Wall Referrals: [facility] Outpatient Therapy [Outside] - 08/08/25 7:00 am Referral Note: We have notified the [facility] of the need for a follow-up appointment for outpatient PT to be scheduled. If you have not heard from them within the next 2 business days, please call them directly. If unable to keep this appointment please call to reschedule. Brooks Wall DO [Physician, Orthopedics] - 08/16/25 3:00 pm Discharge Diet: Regular Discharge Activity: Limit activity as instructed and Use walker/crutches as instructed Patient Instructions: Cefadroxil (By mouth), Methocarbamol (By mouth), Oxycodone, Rapid Release (By mouth), Acute Wound Care (DC), Total Knee Replacement (GEN), Post Anesthesia Care Activity Restrictions/Additional Instructions: Status post right total knee arthroplasty discharge instructions Keep incisions clean dry and intact, leave Silverlon bandage dressings on in place for 7 days after that may rinse incisions with warm soapy water pat dry and redress with a dry dressing. May remove Jamin bandage and soft dressing down with Silverlon dressing after 72 hours Patient may weight-bear as tolerate to the operative extremity Utilize walker as needed Encourage knee range of motion Ice and elevate as needed for pain and swelling Take pain medication as prescribed Take antibiotic as prescribed Take muscle relaxer as prescribed Take antinausea medication as needed Pain medication can cause constipation. take [id number] stool softeners and or MiraLAX. Take prescribed aspirin twice daily for the next 14 days for blood clot prevention May supplement for pain with Tylenol [id number] as needed(1000 mg every 8 hours-do not exceed more than 3000mg in 24-hour period) No baths or soaks Follow-up in the orthopedic office in 2 weeks Contact the office for any questions or concerns Discharge Attestations Time Spent in Discharge Care*: less than 30 min Quality Metrics Clinical Quality Measures [ No reported AMI, CVA or VTE this stay] Coding Level of Care Code Acute Code for Chg Fwd Diagnoses Status post total left knee replacement using cement Z96.652 Post-op pain G89.18 Right knee DJD M17.11 Mixed hyperlipidemia E78.2 Hyperlipidemia type: mixed hyperlipidemia Depression F32.A
--- NOTE | 2025-08-02 13:39 | PC.NURSE ---
Pt is being discharged home. IV removed. Pt given verbal discharge instructions. Pt and significant other verbalized understanding.
[2025-08-02 15:21] VITALS: BP 115/85; PULSE 67; RESP 16; TEMP 36.6; O2SAT 99
== END 2025-08-02 13:30 | disposition home or self-care (01) ==
LOC: MEDSURG 15:34
PROVIDERS: Admitting Provider Student in an Organized Health Care Education/Training Program; PCP Nurse Practitioner Family; Visit Provider Student in an Organized Health Care Education/Training Program
PROC: 8E0Y0CZ Robotic Assisted Procedure of Lower Extremity, Open Approach (ICD-10-PCS; CPT 27447; principal; 2025-08-01 12:25)
DX: M17.11 Unilateral primary osteoarthritis, right knee (principal); E78.2 Mixed hyperlipidemia; F32.A Depression, unspecified; Z79.891 Long term (current) use of opiate analgesic; Z87.891 Personal history of nicotine dependence
CPT/HCPCS: 27447; 20985; 36415; 51702; 73560; 80048; 85025; 86850; 86900; 97110; 97161; 97165; A4216; C1713; C1776; G0378; J0131; J0169; J0690; J1171; J1885; J2250; J2270; J2405; J2704; J2795; J3010; J3490; J7030; J7120; J9999; L8699

== ENCOUNTER 2025-08-08 06:38 | Outpatient (RCR) | payer OTHER, SELFPAY | END 2025-08-14 23:59 | disposition home or self-care (01) | LOC: SPT 06:38 | PROVIDERS: PCP Nurse Practitioner Family; Visit Provider Student in an Organized Health Care Education/Training Program | DX: Z47.1 Aftercare following joint replacement surgery (principal); Z96.651 Presence of right artificial knee joint | CPT/HCPCS: 97110; 97162 ==

== ENCOUNTER 2025-08-15 05:00 | Outpatient (RCR) | payer OTHER, SELFPAY | END 2025-09-14 23:59 | disposition home or self-care (01) | LOC: SPT 05:00 | PROVIDERS: PCP Nurse Practitioner Family; Visit Provider Student in an Organized Health Care Education/Training Program | DX: Z47.1 Aftercare following joint replacement surgery (principal); Z96.651 Presence of right artificial knee joint | CPT/HCPCS: 97110 ==

== ENCOUNTER 2025-08-15 20:46 | Emergency (ER) | payer OTHER, SELFPAY ==
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
--- OUTSIDE RECORDS SUMMARY | 2025-08-15 20:50 | XMS_ITS | Data Portability ---
Author Organization [facility] Gopi Walters [facility] Address [address] [facility] [address] [place] [address] Assessment Encounter Date Assessment Date Assessment LastModified by Organization Details LastModified Time 04/25/2025 04/25/2025 work comp injury. Company uses [employer] so pt sent over there for work comp injury [email or web address] Not available 04/26/2025 07:16:45 04/26/2025 04/26/2025 Patient here today for a follow-up from the ER. Her arm is still hurting and she is struggling with movement. She will do home exercises and will get her in for MRI and PT as well as an ortho referral. Not available 04/26/2025 15:19:06 05/10/2025 05/10/2025 Patient here for a follow-up on her left shoulder. It has greatly improved but she still has some pain and ROM issues with it. She has been to one session of PT so far. MRI is scheduled for Friday. Will continue off work until 05/24/2025 and then will have re-evaluation . If MRI is back sooner, will call her with update. Continue in PT. Not available 05/10/2025 10:47:56 05/24/2025 05/24/2025 Patient here today for a follow-up on her left shoulder. Okay to return to work. Will have her complete physical therapy until release. If she has troubles at work getting this done, she will let us know and we will adjust it to allow her to return to work but complete PT. Not available 05/24/2025 10:31:45 07/22/2025 07/22/2025 Patient here today for a [...] available Not available Lab None recorded. Referral orthopedi c surgeon referral [address], [address] [place], [address], 05/06/2025 17:56:41 physical therapist referral 2024 025 [place] [address] [facility], [address], [address], 05/09/2025 16:45:03 Procedures None recorded. Surgeries None recorded. Imaging LDCT, chest, for lung cancer screening 2024 025 [facility], [address] [place], [address], 08/01/2025 14:15:35 MRI, shoulder, w/o contrast [address] (Scheduling Orders), [address] [place], [address], 05/11/2025 16:00:27 Medication Orders citalopra m 20 mg tablet 2024 025 [facility] [place], [address] [place], [address], 07/29/2025 12:22:21 Patient TargetsNo targets recorded. Patient Instructions Encounter Date Encounter Id Patient Instructions Last Modified By Organization Details Last Modified Time 04/26/2025 [id number] Call or return for questions or concerns. Not available 04/26/2025 15:19:11 05/10/2025 [id number] Call or return for questions or concerns. Not available 05/10/2025 10:48:14 05/24/2025 [id number] Call or return for questions or concerns. Not available 05/24/2025 10:31:02 07/22/2025 [id number] Call or return for questions or concerns. Not available 07/22/2025 10:10:29 Reason for Referral Orthopedic Surgeon Referral for Pain of left shoulder joint Referring Physician: [facility], Encounter Date: 04/26/2025 Physical Therapist Referral for Pain of left shoulder joint Referring Physician: Pat Ardon [facility], Encounter Date: 04/26/2025 Results Created Date Observation Date Name Description Value Unit Range Abnormal Flag Note LastModifiedBy Organization Detail LastModifiedTime 03/31/2003/31/2025 MAMMO , scree ryley, digit al, bilat eral No observ ation record ed. [address] [place], [address], 04/22/2025 11:20:42 05/13/2005/13/2025 MRI, shomaximo ronen, w/o contr ast No observ ation record ed. [address] [place], [address], 05/24/2025 10:25:53 Result Notes None recorded. Problems Name Problem SNOMED Code Status Onset Date Resolution Date Notes Provider Name and Address Organization Details Recorded Time Generali zed abdomina l pain 931531881 Active PAT ARDON, [facility] [address] [place] [address], [address] , [facility] 15:12:57 Acute bronchit is 01404874 Active PAT ARDON [facility] [address] [place], [address] , [facility] 5 15:12:57 Disorder associat ed with menstrua tion AND/OR menopaus e [id number] Jesse ARDON, [address], [address] , [facility] 5 15:12:57 Injury of left shoulder 06655537881 [id number] Jesse ARDON, [address], [address] [place] [address] , [facility] 5 15:12:57 Acute tear of meniscus of left knee 04130570323 624774 Jesse ARDON, [address], [address] [place] [address] , [facility] 5 15:12:57 History of total knee arthropl asty 84429484904 05 Jesse ARDON, [address], [address] [place] [address] , [facility] 5 15:12:58 Postoper ative pain [id number] Jesse ARDON, [address], [address] [place] [address] , [facility] 5 15:12:58 Dyspnea [id number] Jesse ARDON, [place] [address] , [facility] 5 15:12:58 Eruption [id number] Jesse ARDON, [place] [address] , [facility] 5 15:12:58 Patient encounte r status [id number] Jesse ARDON, [place] [address] , [facility] 5 15:12:58 Osteoart hritis of left knee joint 85136078882 9109 Active PAT ARDON, [address], [address] , [facility] 5 15:12:58 Osteoart hritis of right knee joint 04214249788 9100 Active PAT ARDON, [address], [address] , [facility] 5 15:12:58 Fever [id number] Jesse ARDON, [address], [address] , [facility] 5 15:12:58 Pain of left knee region 03557438701 4109 Active PAT ARDON, [address], [address] , [facility] 5 15:12:58 Hyperlip idemia [id number] Jesse ARDON, [address], [address] , [facility] 5 15:12:58 Kidney stone [id number] Jesse ARDON, [address], [address] , [facility] 5 15:12:58 Child attentio n deficit disorder 450456038 Completed 201106/29/2012 ATTENTIO N DEFICIT DISORDER - Status is Inactive ; Recorded 06/29/20 12 3:43PM by Derek amos MD, Annotati on/Adden dum; Promoted ; acuity set as *; Not Available [facility] 3 03:14:51 Anxiety 27010952 Active [address] [facility], LDoreenLDoreenCDoreen 5 17:40:52 Irritabl e bowel syndrome 50962750 Active [address] [facility], LDoreenL.CDoreen 5 17:41:13 Generali zed anxiety disorder 29625280 Active [address] [facility], LDoreenL.CDoreen 5 17:40:59 Herpesvi rodger infectio n 03941269 Active [address] [facility], JonathonCDoreen 5 17:41:15 History of hernia repair 40441715562 109 Active 2020 PAT ARDON, [address], [address] , [facility], JustinaLDoreenCDoreen 5 15:12:58 Mixed hyperlip idemia 549003122 Active [address] [facility], JustinaLDoreenCDoreen 5 17:42:24 Problem Notes None recorded. Procedures Surgical History Date Name Laterality Status Provider Name and Address Organization Details Recorded Time 05/13/20 25 MRI of left shoulder completed MARYLU SOTO [facility], Gopi 05/19/2025 19:35:55 04/25/20 25 plain X-ray of left shoulder completed MARYLU SOTO [facility], JustinaLDoreenCDoreen 04/26/2025 14:58:51 03/31/20 25 screening mammography completed MARYLUROSA SOTO [facility], JustinaLDoreenCDoreen 04/01/2025 13:42:35 09/15/19 15 hysterectomy completed PAT ARDON, [address], [address], [facility], JustinaLDoreenVini 03/23/2025 11:29:36 Knee Replacement completed MARYLU SOTO [facility], [place]op[place] 03/23/2025 11:14:19 Imaging Results None recorded. Procedure Notes None recorded. Medical Equipment None Reported. Allergies Allergen ID Allergen Name Allergen Category Reaction Reaction Severity Criticality Documentation Date Start Date Code Code System Note Provider Name and Address Organization Details Recorded Time 65427 No known allergy (situatio n) Not available Not available Not available Not available 04/26/2025 29398 6003 SNOMED PAT ARDON, [employer] [address] [place], [address], [facility], Gopi 15:12:37 No known drug allergies Medications [...] weight Oxygen saturation Heart rate Respiratory rate Body temperature Systolic And Diastolic Provider Name and Address Organization Details Last Updated DateTime 5 160.02 cm 30.8 kg/m2 56960.0 7 g 98 % 86 /min 16 /min 98.2 [degF] 130/80 mm[Hg] Isha Nixon [facility], .L.CDoreen 5 18:19:39 Date Recorded Body height Body mass index (BMI) Body weight Oxygen saturation Heart rate Respiratory rate Systolic And Diastolic Provider Name and Address Organization Details Last Updated DateTime 5 160.02 cm 30.8 kg/m2 66037.0 7 g 98 % 90 /min 20 /min 128/88 mm[Hg] MARYLU SOTO [facility] 5 10:05:51 Date Recorded Body height Body mass index (BMI) Body weight Body temperature Respiratory rate Heart rate Oxygen saturation Systolic And Diastolic Provider Name and Address Organization Details Last Updated DateTime 5 160.02 cm 31.7 kg/m2 50945.0 3 g 97.8 [degF] 19 /min 90 /min 97 % 130/80 mm[Hg] Riana Simpson [facility] 5 10:10:38 Date Recorded Body height Body mass index (BMI) Body weight Oxygen saturation Heart rate Respiratory rate Systolic And Diastolic Provider Name and Address Organization Details Last Updated DateTime 5 160.02 cm 30.8 kg/m2 09551.0 7 g 96 % 78 /min 18 /min 132/76 mm[Hg] MARYLU CHARLES [facility] 5 09:49:27 Social History Question Answer Notes LastModified by Organizat ion Details LastModified Time Tobacco Smoking Status Former Smoker Quit 2018 MARYLU CHARLES [facility] 03/23/2025 11:13:29 What Is Your Level Of Caffeine Consumption? Moderate [email or web address] Information not available 03/23/2025 When Did You Quit Smoking? 6-10yearssin celastcigare tte Information not available 03/23/2025 What Was The Date Of Your Most Recent Tobacco Screening? 04/25/2025 [email or web address] Information not available 04/25/2025 What Is Your Current Pack Years? 30ormorepack years Information not available 03/23/2025 What Is Your Relationship Status? Domestic Partner Information not available 03/23/2025 At What Age Did You Start Smoking Tobacco? 12 Information not available 03/23/2025 How Much Tobacco Do You Smoke? No Information not available 03/23/2025 How Many Years Have You Smoked Tobacco? 35 Information not available 03/23/2025 Have You Used IV Drugs? No [email or web address] Information not available 03/23/2025 Sex: Unknown Functional Status Question Answer Note LastModified by Organizat ion Details LastModified Time Do you use any illicit or recreational drugs? Yes smokes marijuana Information not available 03/23/2025 Do you or have you ever used any other forms of tobacco or nicotine? No Information not available 03/23/2025 What is your level of alcohol consumption? None Information not available 03/23/2025 Are you able to walk independently without assistance or assistive devices? YESWOREST Information not available 03/23/2025 Are you able to care for yourself independently? Yes [email or web address] Information not available 03/23/2025 Do you or have you ever used any nicotine-free cigarettes, vape, or chewing tobacco? No Information not available 03/23/2025 Mental Status None recorded. Family History Relationship Description Onset Age of this Age Resolved Age Notes LastModified by Organization Details LastModified Time Father Essential hypertension [email or web address] Not available 11:08:08 Father Hyperlipidem ia [email or web address] Not available 03/23 11:08:20 Father Dementia [email or web address] Not availab le 03/23/2025 11:10:12 Maternal Grandmother Malignant neoplasm of ovary age 72 Not available 03/23/2025 11:15:26 Medical History Condition Response Coronary Artery Disease N Gout N Other N Blood Diseases N Kidney Stones Y Hyperthyroidism N Blood Transfusion N Breast Cancer N COPD N Depression Y Lung Disease N Hypothyroidism N Defects or Inherited Disease N Developmental or Behavioral Disorders N Breast Problem N Difficulty Swallowing N Anesthesia Complications N Meniere's disease N Anxiety Disorder Y Muscle, Joint, or Bone Problems Y Vision or Eye Problems N Arthritis Y Polyps N Infertility N Cancer N Varicosities N Stroke N Endometriosis N Bladder or Kidney Problems Y High Cholesterol Y Liver Disease N Fibromyalgia Y Headaches Y Kidney Disease N Allergies/Hayfever N Heart [...] N Heart Disease N Pulmonary Embolism N Pre-Eclampsia N Hypertension N Chronic Ear Infections N Osteoporosis N Chicken Pox Y Autism Spectrum Disorder (ASD) N Thrombophilias N Gynecological HistoryNo gynecological history recorded. Obstetrics History GPAL:G 0 P 0 0 0 0 Immunizations Vaccine Type Date Status Note Provider Nam e and Address Organization Details Recorded Time COVID-19, mRNA, LNP-S, PF, 100 mcg/0.5mL dose or 50 mcg/0.25mL dose 03/11/2021 completed Not Available [facility] 5 09:22:34 COVID-19, mRNA, LNP-S, PF, 100 mcg/0.5mL dose or 50 mcg/0.25mL dose 04/08/2021 completed Not Available [facility] 5 09:22:34 Past Encounters Encounter ID Performer Location Encounter Start Date Encounter Closed Date Diagnosis/Indication Diagnosis SNOMED-CT Code Diagnosis ICD10 Code Diagnosis IMO Codes Diagnosis Note [id number] KATY BECK [employer] [facility]) [address] [place] [address] 12/25/2022 09:47:58 01/06/2023 09:13:48 Acute bacterial sinusitis 82382014 J01.90 Acute pharyngitis 651417 003 J02.9 [id number] KATY BECK [employer] [facility]) [address] [place] [address] 05/10/2023 09:11:47 05/10/2023 11:08:43 Generalized aches and pains 60008789 R52 COVID-19 133530179 U07.1 [id number] PAT ARDON [facility]) [address] [place] [address] 03/23/2025 10:35:38 03/23/2025 11:48:58 Physical examination 3992111 Z00.00 [id number] Screening mammography 24 511152 Z12.31 9833181 Pain of knee region 1003 703877 M25.561 M25.562 G89.[id number] Wall. She has had left knee replacemen t already. Periumbilical pain 65494 3005 R10.33 724500 History of umbilical hernia repair. Mild depression 53400260 3 F32.A 254769 Generalize d anxiety disorder 64158193 F41.1 236509 Will start citalopram . Mixed hyperlipidemia 267 869047 E78.2 13088 Stopped atorvastat in. Menopausal flushing 1984 37904 N95.1 817268 Discussed hormones, she will have a mammogram done and then will discuss further treatment with hormone therapy. Screening for malignant neoplasm of colon 633359094 Z12.11 336800 [id number] DEDRA [facility] ([facility]) [address] [place] [address] 04/22/2025 10:42:23 04/22/2025 12:21:19 Mixed hyperlipidemia 560782186 E78.2 79023 Doing well on crestor. Menopausal flushing 1983 64939 N95.1 293895 Improved with citalopram . Serum thyr oid stimulating hormone level outside reference range 057339929 R79.89 4788475751 Pain in bi lateral feet 7284584039 8555028 M79.671 M79.116 1894475 History of bunions, feet ache, knot in arch of right foot. [id number] DEDRA [facility] ([facility]) [address] [place] [address] 04/25/2025 18:13:58 04/25/2025 18:16:26 [id number] DEDRA HERNDON [facility] ([facility]) [address] [place] [address] 04/26/2025 14:22:32 04/26/2025 15:30:44 Pain of left shoulder joint 5242474663 0644705 M25.512 088061 Accident w alex engaged in work-related activity 27884443 Y99.0 4339311 [id number] DEDRA HERND[facility] ([facility]) [address] [place] [address] 05/10/2025 09:57:54 05/10/2025 10:51:45 Injury of left shoulder 3378474607 7794345 S49.92XA Continue in PT. Accident w alex engaged in work-related activity 09673157 Y99.0 4551646 [id number] DEDRA [facility]ND[facility] ([facility]) [address] [place] [address] 05/24/2025 10:03:37 05/24/2025 11:41:50 Injury of left shoulder 2011009436 2276654 S49.92XA Continue in PT. [id number] D[facility]RA [facility] ([facility]) [address] [place] [address] 07/22/2025 09:21:13 07/22/2025 10:19:51 Mixed hyperlipidemia 411592521 E78.2 11205 Continue rosuvastat in. Mild depression 34328603 3 F32.A Ex-cigarette smoker 2810 49733 Z87.891 399381 Pain of ri ght knee joint 4571115526 39866 M25.[address] Wall. She has had left knee replacemen t already. Health Concerns Section Related Observation LastModified by Organization Detai ls LastModified Time None Recorded Concern Status LastModified by Organization Details LastModified Time None Recorded Advance Directives Directive None Recorded Payers Insurance Date Sequence Insurance Name Policy Number Policy Rich Covered Member ID Rich Member ID Guarantor Name 07/25/2025 1 [employer] [id number] Hallie A Fine [id number] Hallie A Fine 03/29/2025 1 [employer] [id number] Hallie A Fine [id number] Hallie A Fine 05/02/2025 JW [id number] Chun Hallie A Fine Notes Date Note Type Note Provider Name and Address Organization Details Recorded Time 04/25/2025 text/html Joint PainReport ed by Patient walk in patient JUMA DEDRA WALKER [address] [place] [address], [address], [facility] 04/26/2025 07:16:59 04/26/2025 text/html Joint PainReport ed by PatientIFor quality, patient reportssharpanddull. For severity, patient reportsinterferes with work/school. For location, patient reportsleft shoulder. For duration, patient reportspresent <1 month. For timing, patient reportsconstant. For context, patient reportstrauma(fall). For alleviating factors, patient reportsrest. For aggravating factors, patient reportsmovement/positi oning.ROS as noted in the HPI walk in patient PAT ARDON, [address], , [facility] 05/11/2025 09:37:02 05/10/2025 text/html Joint PainReport ed by PatientIFor quality, patient reportssharpanddull. For severity, patient reportsinterferes with work/school. For location, patient reportsleft shoulder. For duration, patient reportspresent <1 month. For timing, patient reportsconstant(improv ed). For context, patient reportstrauma(fall). For alleviating factors, patient reportsrest. For aggravating factors, patient reportsmovement/positi oning.ROS as noted in the HPI walk in patient PAT ARDON, [address], , [facility] 05/10/2025 10:49:27 05/24/2025 text/html Joint PainReport ed by PatientIFor quality, patient reportsdull. For severity, patient reportsinterferes with work/school. For location, patient reportsleft shoulder. For duration, patient reportspresent <1 month. For timing, patient reportsintermittent(im proved). For context, patient reportstrauma(fall). For alleviating factors, patient reportsrest. For aggravating factors, patient reportsmovement/positi oning. PAT ARDON, [address], , [facility] 05/24/2025 10:32:06 07/22/2025 text/html Anxiety/Depressi onRepo rted by PatientHPIFor context, patient reportschronic pain. For associated symptoms, patient reportsdepression. PAT ARDON, [facility] [place], [address], [facility], Gopi 07/22/2025 10:14:13 OBGyn Episode No OBEpisode recorded.
--- OUTSIDE RECORDS SUMMARY | 2025-08-15 20:50 | XMS_ITS | Continuity of Care Document ---
Author Organization [facility], [place]op[place], [facility] ([facility]) Address [address] [place] [address] Assessment Encounter Date Assessment Date Assessment LastModified by Organization Details LastModified Time 05/24/2025 05/24/2025 Patient here today for a follow-up on her left shoulder. Okay to return to work. Will have her complete physical therapy until release. If she has troubles at work getting this done, she will let us know and we will adjust it to allow her to return to work but complete PT. Not available 05/24/2025 10:31:45 Plan of Treatment Reminders Order Date Submit Date Provider Last Modified By Organization Details Last Modified Time Details Appointments OFFICE VISIT 20 2025 09:00A M DEDRA HERNDON Not available Not available Not available Lab None recorded . Referral None recorded . Procedures None recorded . Surgeries None recorded . Imaging None recorded . Medication Orders None recorded . Patient TargetsNo targets recorded. Patient Instructions Encounter Date Encounter Id Patient Instructions Last Modified By Organization Details Last Modified Time 05/24/2025 [id number] Call or return for questions or concerns. Not available 05/24/2025 10:31:02 Reason for Referral None Reported. Results Created Date Observation Date Name Description Value Unit Range Abnormal Flag Note LastModifiedBy Organization Detail LastModifiedTime 05/13/2005/13/2025 MRI, shoul ronen, w/o contr ast No observ ation record ed. [facility] [address] [place], [address], 05/24/2025 10:25:53 Result Notes None recorded. Problems Name Problem SNOMED Code Status Onset Date Resolution Date Notes Provider Name and Address Organization Details Recorded Time Generali zed abdomina l pain [id number] Jesse ARDON, [address], [address] , [facility] 5 15:12:57 Acute bronchit is [id number] Jesse ARDON, [address], [address] , [facility] 5 15:12:57 Disorder associat ed with menstrua tion AND/OR menopaus e [id number] Jesse ARDON, [address], [address] , [facility] 5 15:12:57 Injury of left shoulder 33209165831 258172 Jesse ARDON, [address], [address] , [facility] 5 15:12:57 Acute tear of meniscus of left knee 35168256890 404999 Jesse ARDON [address], , [facility] 5 15:12:57 History of total knee arthropl asty [id number] 05 Jesse ARDON, [address], , [facility] 5 15:12:58 Postoper ative pain [id number] Jesse ARDON [address], [address] , [facility] 5 15:12:58 Dyspnea [id number] Jesse ARDON [address], , [facility] 5 15:12:58 Eruption [id number] Jesse ARDON, [address], , [facility] 5 15:12:58 Patient encounte r status [id number] Jesse ARDON, [address], , [facility] 5 15:12:58 Osteoart hritis of left knee joint 11118298503 9109 Jesse ARDON, [address], , [facility] 5 15:12:58 Osteoart hritis of right knee joint 11277435050 9100 Jesse ARDON, [address], , [facility] 5 15:12:58 Fever [id number] Jesse ARDON, [address], , [facility] 5 15:12:58 Pain of left knee region [id number] 4109 Jesse ARDON, [address], , [facility] 5 15:12:58 Hyperlip idemia [id number] Jesse ARDON, [address], , [facility] 5 15:12:58 Kidney stone 03691463 Active STEVEN ARDON, [facility] [address] [place], [address] , [facility] 5 15:12:58 Child attentio n deficit disorder 890502139 Completed 201106/29/2012 ATTENTIO N DEFICIT DISORDER - Status is Inactive ; Recorded 06/29/20 12 3:43PM by Derek amos MD, Annotati on/Adden dum; Promoted ; acuity set as *; Not Available [facility] 3 03:14:51 Anxiety 00477973 Active 2017 MARYLU dobbins [facility], [facility] 5 17:40:52 Irritabl e bowel syndrome 88738091 Active 2017 MARYLU dobbins [facility] 5 17:41:13 Generali zed anxiety disorder 50131288 Active 2017 MARYLU dobbins [facility] 5 17:40:59 Herpesvi rodger infectio n 48677694 Active 2017 MARYLU dobbins [facility] 5 17:41:15 History of hernia repair 28587147396 109 Active 2020 STEVEN ARDON, [address], [address] , [facility] 5 15:12:58 Mixed hyperlip idemia 632995776 Active 2024 MARYLU dobbins [facility] 17:42:24 Problem Notes None recorded. Procedures Surgical History Date Name Laterality Status Provider Name and Address Organization Details Recorded Time 05/13/20 MRI of left shoulder completed MARYLU SOTO [facility], [facility] 05/19/2025 19:35:55 04/25/20 25 plain X-ray of left shoulder completed [facility], [place]opi 04/26/2025 14:58:51 03/31/20 25 screening mammography completed [facility], [place]op[place] 04/01/2025 13:42:35 09/15/19 15 hysterectomy completed STEVEN ARDON, [facility] [address] [place], [address], [facility], [place]opi 03/23/2025 11:29:36 Knee Replacement completed [facility], [place]op[place] 03/23/2025 11:14:19 Imaging Results None recorded. Procedure Notes None recorded. Medical Equipment None Reported. Allergies Allergen ID Allergen Name Allergen Category Reaction Reaction Severity Criticality Documentation Date Start Date Code Code System Note Provider Name and Address Organization Details Recorded Time 80458 No known allergy (situatio n) Not available Not available Not available Not available 04/26/2025 74880 6003 SNOMED STEVEN ARDON, [facility] [address] [place] [address], [phone], [facility], Gopi 15:12:37 No known drug allergies Medications [...] Organization Details Last Updated DateTime 160.02 cm 31.7 kg/m2 33291.0 3 g 97.8 [degF] 19 /min 90 /min 97 % 130/80 mm[Hg] Riana Simpson [facility] 10:10:38 Social History Question Answer Notes LastModified by [email or web address] ion Details LastModified Time Tobacco Smoking Status Former Smoker Quit 2018 MARYLU dobbins [facility] 03/23/2025 11:13:29 What Is Your Level Of Caffeine Consumption? Moderate [email or web address] Information not available 03/23/2025 When Did You [...] 03/23/2025 Have You Used IV Drugs? No Information not available 03/23/2025 Sex: Unknown Functional Status Question Answer Note LastModified by Organizat ion Details LastModified Time Do you use any illicit or recreational drugs? Yes smokes marijuana Information not available 03/23/2025 Do you or have you ever used any other forms of tobacco or nicotine? No Information not available 03/23/2025 What is your level of alcohol consumption? None [email or web address] Information not available 03/23/2025 Are you able to walk independently without assistance or assistive devices? YESWOREST [email or web address] Information not available 03/23/2025 Are you able to care for yourself independently? Yes [email or web address] Information not available 03/23/2025 Do you or have you ever used any nicotine-free cigarettes, vape, or chewing tobacco? No Information not available 03/23/2025 Mental Status None recorded. Family History Relationship Description Onset Age of this Age Resolved Age Notes LastModified by Organization Details LastModified Time Father Essential hypertension [email or web address] Not available 11:08:08 Father Hyperlipidem ia [email or web address] Not available 03/23 11:08:20 Father Dementia [email or web address] Not availab le 03/23/2025 11:10:12 Maternal Grandmother Malignant neoplasm of ovary age 72 [email or web address] Not available 03/23/2025 11:15:26 Medical History Condition Response Coronary Artery Disease N Other N Gout N Kidney Stones Y Blood Diseases N Hyperthyroidism N Breast Cancer N Blood Transfusion N Depression Y COPD N Lung Disease N Hypothyroidism N Developmental or Behavioral Disorders N Defects or Inherited Disease N Breast Problem N Difficulty Swallowing N [...] 50 mcg/0.25mL dose 03/11/2021 completed Not Available [facility] 5 09:22:34 COVID-19, mRNA, LNP-S, PF, 100 mcg/0.5mL dose or 50 mcg/0.25mL dose 04/08/2021 completed Not Available [facility] 5 09:22:34 Past Encounters Encounter ID Performer Location Encounter Start Date Encounter Closed Date Diagnosis/Indication Diagnosis SNOMED-CT Code Diagnosis ICD10 Code Diagnosis IMO Codes Diagnosis Note [id number] JUMA WALKER [facility] ([facility]) [address] [place], [place] [phone] 04/25/2025 18:13:58 04/25/2025 18:16:26 [id number] STEVEN ARDON [facility] ([facility]) [address] [place], [place] [phone] 04/26/2025 14:22:32 04/26/2025 15:30:44 Pain of left shoulder joint 3345247875 6127958 M25.512 779980 Accident w alex engaged in work-related activity 10006595 Y99.0 9361475 [id number] STEVEN ARDON [facility] ([facility]) [address] [place], [place] [phone] 05/10/2025 09:57:54 05/10/2025 10:51:45 Injury of left shoulder 2437506896 3969747 S49.92XA Continue in PT. Accident w alex engaged in work-related activity 43092161 Y99.0 5500899 [id number] STEVEN ARDON [facility] ([facility]) [address] [place] [address] 05/24/2025 10:03:37 05/24/2025 11:41:50 Injury of left shoulder 6527680166 8154157 S49.92XA Continue in PT. Health Concerns Section Related Observation LastModified by Organization Detai ls LastModified Time None Recorded Concern Status LastModified by Organization Details LastModified Time None Recorded Payers Encounter Date Sequence Insurance Name Policy Number Policy Rich Covered Member ID Rich Member ID Guarantor Name 05/24/2025 1 [facility] [id number] Hallie Agosto [id number] Hallie Agosto Notes Date Note Type Note Provider Name and Address Organization Details Recorded Time 05/24/2025 text/html Joint PainReport ed by PatientHPIFor quality, patient reportsdull. For severity, patient reportsinterferes with work/school. For location, patient reportsleft shoulder. For duration, patient reportspresent <1 month. For timing, patient reportsintermittent(im proved). For context, patient reportstrauma(fall). For alleviating factors, patient reportsrest. For aggravating factors, patient reportsmovement/positi oning. STEVEN ARDON, [facility] [address] [place], [address], [facility] 05/24/2025 10:32:06 OBGyn Episode No OBEpisode recorded.
[2025-08-15 21:01] VITALS: BP 155/87; PULSE 106; RESP 18; TEMP 36.8; O2SAT 94; BMI 29.2
[2025-08-15 23:26] VITALS: PULSE 80; O2SAT 97
[2025-08-15 23:50] VITALS: RESP 18; O2SAT 95
[2025-08-15] MEDS: oxyCODONE-APAP 5-325 mg Tablet 2 TAB PO (23:50)
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
== END 2025-08-16 00:17 | disposition home or self-care (01) ==
PROVIDERS: Emergency Provider Student in an Organized Health Care Education/Training Program; PCP Nurse Practitioner Family
DX: M79.604 Pain in right leg (principal); Z79.82 Long term (current) use of aspirin; Z87.891 Personal history of nicotine dependence; E78.5 Hyperlipidemia, unspecified; Z96.651 Presence of right artificial knee joint; Z98.890 Other specified postprocedural states
CPT/HCPCS: 96372; 99284; J1885; J9999

== ENCOUNTER → 2025-08-16 15:04 | Outpatient (BNVA) | payer OTHER, SELFPAY | PROVIDERS: PCP Nurse Practitioner Family; Visit Provider Physician Assistant | DX: Z98.890 Other specified postprocedural states (principal); Z96.651 Presence of right artificial knee joint | CPT/HCPCS: 73560; 73565 ==